=== PATIENT | male | born 1940 | race Caucasian/White ===

== ENCOUNTER 2018-09-06 07:54 | Inpatient (IN) | payer BC, MEDICARE, OTHER ==
[2018-09-03 15:26] LABS: BASOPHILS # (AUTO) 0.1 X10'3 (0-0.2); BASOPHILS % (AUTO) 0.5 % (0-1); EOSINOPHILS # (AUTO) 0.1 X10'3 (0-0.9); EOSINOPHILS % (AUTO) 1.2 % (0-6); LYMPHOCYTES # (AUTO) 1.5 X10'3 (1.1-4.8); LYMPHOCYTES % (AUTO) 13.3 % (21-51); MEAN CORPUSCULAR HGB CONC 32.6 % (33.0-36.5); MEAN CORPUSCULAR VOLUME 85.9 FL (78-98); MEAN PLATELET VOLUME 8.5 FL (7.4-10.4); MONOCYTES % (AUTO) 8.6 % (2-12); NEUTROPHILS # (AUTO) 8.6 X10'3 (1.8-7.7); NEUTROPHILS % (AUTO) 76.4 % (42-75); PRE OP HEMATOCRIT 42.6 % (42.0-52.0); PRE OP HEMOGLOBIN 13.9 g/dL (14.0-17.9); PRE OP PLATELET COUNT 240 X10'3 (140-440); RED BLOOD COUNT 4.96 X10'6 (4.70-6.10); RED CELL DISTRIBUTION WIDTH 18.5 % (11.5-14.5)
[2018-09-03 15:42] LABS: INR 1.1 INR; PRE OP PARTIAL THROMB. TIME 32 SECONDS (22-35)
[2018-09-03 15:44] LABS: ALBUMIN 3.3 G/DL (3.4-5.0); ALBUMIN/GLOBULIN RATIO 0.7 (1.1-1.5); ALKALINE PHOSPHATASE 90 IU/L (46-116); BLOOD UREA NITROGEN 26 MG/DL (7-18); CHLORIDE 101 MMOL/L (99-107); CREATININE 0.93 MG/DL (0.60-1.10); PRE OP ALT 20 U/L (30-65); PRE OP ANION GAP 11 (8-16); PRE OP AST 14 U/L (10-37); PRE OP BILIRUB, TOTAL 0.3 MG/DL (0.0-1.0); PRE OP GLUCOSE 95 MG/DL (70-104); PRE OP SODIUM 139 MMOL/L (135-145); TOTAL CARBON DIOXIDE 27.3 MMOL/L (24-32); TOTAL PROTEIN 7.8 G/DL (6.4-8.2); eGFR 79 ML/MIN
[2018-09-03 15:45] LABS: CLARITY,URINE CLEAR (Clear); COLOR,URINE YELLOW (Yellow); GLUCOSE, URINE NEGATIVE (Neg); KETONES,URINE NEGATIVE (Neg); LEUKOCYTE ESTERASE ,URINE NEGATIVE (Neg); NITRITES, URINE NEGATIVE (Neg); OCCULT BLOOD,URINE NEGATIVE (Neg); PROTEIN,URINE NEGATIVE (Neg); UROBILINOGEN,URINE 0.2 E.U/dL (0.2-1.0)
[2018-09-03 15:47] LABS: UA COLLECTION TYPE CLN CATCH MIDSTREAM
[~2018-09-06] VITALS: Ht 165.1 cm; Wt 101.8 kg
[2018-09-06] VITALS (18 sets, daily range): BP systolic 122–186; BP diastolic 54–79
[~2018-09-06 07:54] MED LIST: AMLO1CAP PO; ATOR40TA PO; CLOP75TA15 PO; HYDROmorphone 1 mg/ml syringe IV PRN; HYDROmorphone inj. 0.5 MG/0.5 ML DISP.SYRIN IV PRN; MELO-102 PO; OMEG-182 PO; POTA8CAP9 PO; PSYL575P22 PO; TRAM50TA2 PO; [UNRECOGNIZED DRUG - OTHER] PO; acetaminophen 325mg tablet PO ONE; acetaminophen 325mg tablet PO PRN; bisacodyl 10mg suppository rectal RC PRN; cefazolin/dext.iso 2gm/100ml 100 ML IV ONE; celeCOXIB 100mg capsule PO ONE; diphenhydrAMINE 25mg capsule PO PRN; famotidine 20mg tablet PO ONE; gabapentin 300mg capsule PO ONE; magnesium hydroxide 30ml (MOM) UD suspension PO PRN; metoclopramide 5 mg/ml inj IV ONE; ondansetron/PF 4mg/2ml inj IV PRN; oxyCODONE SR 10mg (sust. release) tab PO ONE; oxyCODONE/APAP 5-325mg tablet PO PRN; ringers solution, lacted 1,000 ML IV SCH; tranexamic acid inj. 1,000 MG in normal saline 100 ML IV ONE; vancomycin inj 1,500 MG in normal saline 300ml IV soln IV ONE
[2018-09-06] MEDS: multivitamins, therapeutics tablet PO SCH (08:00)
[2018-09-06] MEDS: clopidogrel 75mg tablet PO SCH (08:00)
[2018-09-06] MEDS: ascorbic acid 500mg tablet PO SCH ×2 (08:00→20:08)
[2018-09-06] MEDS: gabapentin 300mg capsule PO SCH ×3 (08:00→20:08)
[2018-09-06] MEDS: atorvastatin 20mg tablet PO SCH (08:00)
[2018-09-06] MEDS ORDERED: LIDOcaine 1% (10mg/ml) 2ml vial ONE (08:26)
[2018-09-06] MEDS ORDERED: ketorolac trometh. 30mg/ml inj. ONE (09:45)
[2018-09-06] MEDS ORDERED: vancomycin 1,000mg inj ONE (09:45)
[2018-09-06] MEDS ORDERED: ROPIVAcaine inj 250 MG, CloNIDine/PF inj 80 MCG, epiNEPHrine inj 0.5 MG in normal salin... IU ONE (10:05)
[2018-09-06] MEDS ORDERED: tetracaine 1% (10mg/ml) pres. free inj. ONE (10:28)
[2018-09-06] MEDS ORDERED: morphine /PF 1mg/ml 10ml inj. ONE (10:30)
[2018-09-06] MEDS ORDERED: MIDAZolam 5mg/5ml vial ONE (10:30)
[2018-09-06] MEDS ORDERED: fentaNYL/PF 50MCG/1 ML 2ML syringe ONE (10:30)
[2018-09-06] MEDS ORDERED: LIDOcaine 1%/PF 5ML 10 MG/ML VIAL ONE ×2 (10:48→12:40)
[2018-09-06] MEDS ORDERED: naloxone 2mg/2ml inj 2 MG in normal saline 500ml IV soln 500 ML IV PRN (11:13)
[2018-09-06] MEDS ORDERED: ringers solution, lacted 1,000 ML IV SCH (11:13)
[2018-09-06] MEDS ORDERED: morphine 4 MG/ML inj SYRINge IV PRN (11:15)
[2018-09-06] MEDS ORDERED: diphenhydrAMINE 50 mg/ml inj IV PRN (11:15)
[2018-09-06] MEDS ORDERED: ondansetron/PF 4mg/2ml inj IV PRN ×2 (11:15)
[2018-09-06] MEDS ORDERED: HYDROmorphone inj. 0.5 MG/0.5 ML DISP.SYRIN IV PRN (11:15)
[2018-09-06] MEDS ORDERED: ROPIVAcaine 0.5% (5mg/ml) 30ml vial ONE (11:25)
[2018-09-06] MEDS ORDERED: propofol inj 20 ML IV ONE (12:40)
--- NOTE | 2018-09-06 12:40 | NUR ---
Received from OR via BED , accompanied by Anesthesiologist DR LAND and report given by Anesthesiolgist. PATIENT A&OX4, DENIES PAIN, V/S WNL, NEUROVASCULAR CHECKS INTACT, 20G PIV LUE , DRESSING TO RIGHT KNEE CDI W/ COLD POWDER PACK AND DENIA DRESSING CDI ,W/ SCD ON. F/C DRAINING CLEAR YELLOW URINE. SENSATION T-11.
[2018-09-06] MEDS: ROPIVAcaine 0.2%/PF PAIN PUMP 400 ML IJ SCH ×2 (12:55→16:31)
--- NOTE | 2018-09-06 13:30 | NUR ---
PATIENT A&OX4, DENIES PAIN, V/S WNL, NEUROVASCULAR CHECKS INTACT, 20G PIV LUE , DRESSING TO RIGHT KNEE CDI W/ COLD POWDER PACK AND DENIA DRESSING CDI ,W/ SCD ON. F/C DRAINING CLEAR YELLOW URINE. SENSATION T-11. PATIENT TAKEN TO 4018 WITH ALL BELONGINGS AND HOOKED UP TO MONITORS IN ROOM AND REPORT GIVEN TO QUITA STRONG WHO HAS TAKEN OVER PATIENT CARE.
[2018-09-06] MEDS: potassium cl 20mEq in 1/2 NS 1,000 ML IV SCH ×3 (15:01→23:01)
--- NOTE | 2018-09-06 15:15 | NUR ---
pt states his pain and sensation have increased, would like pain medicine- I increased the On Q pump up to 10 ml/hr will continue to monitor
[2018-09-06] MEDS ORDERED: tranexamic acid inj. 1,000 MG in normal saline 100ml IV soln 100 ML IV ONE (15:30)
[2018-09-06] MEDS ORDERED: amLODIPine 5mg tablet PO ONE (17:10)
[2018-09-06] MEDS ORDERED: lisinopril 10 MG tablet PO ONE (17:10)
--- NOTE | 2018-09-06 18:30 | NUR ---
Patient in room ORTHO 4015. I have received report from LIGIA Prajapati and had the opportunity to ask questions and assume patient care.
[2018-09-06] MEDS: sennosides 8.6mg tablet PO SCH (20:08)
[2018-09-06] MEDS: cefazolin/dext.iso 2gm/100ml 100 ML IV SCH (20:08)
[2018-09-06] MEDS: oxyCODONE/APAP 5-325mg tablet PO PRN (22:12)
[2018-09-07] MEDS: cefazolin/dext.iso 2gm/100ml 100 ML IV SCH (00:49)
[2018-09-07 02:00] VITALS: BP 160/72
[2018-09-07] MEDS: oxyCODONE/APAP 5-325mg tablet PO PRN ×5 (03:57→20:27)
[2018-09-07] MEDS: potassium cl 20mEq in 1/2 NS 1,000 ML IV SCH ×3 (04:03→23:01)
[2018-09-07 06:00] VITALS: BP 161/80
--- NOTE | 2018-09-07 06:27 | NUR ---
Problems reprioritized. Patient report given, questions answered & plan of care reviewed with LIGIA Prajapati.
[2018-09-07 06:38] LABS: BASOPHILS % (AUTO) 0.4 % (0-1); EOSINOPHILS # (AUTO) 0.3 X10'3 (0-0.9); HEMATOCRIT 37.1 % (42.0-52.0); HEMOGLOBIN 12.3 g/dl (14.0-17.9); LYMPHOCYTES # (AUTO) 1.1 X10'3 (1.1-4.8); LYMPHOCYTES % (AUTO) 8.7 % (21-51); MEAN CORPUSCULAR HEMOGLOBIN 27.9 PG (27.0-31.0); MEAN CORPUSCULAR VOLUME 84.4 FL (78-98); MEAN PLATELET VOLUME 8.7 FL (7.4-10.4); MONOCYTES # (AUTO) 1.3 X10'3 (0-0.9); MONOCYTES % (AUTO) 10.7 % (2-12); NEUTROPHILS # (AUTO) 9.6 X10'3 (1.8-7.7); NEUTROPHILS % (AUTO) 78.2 % (42-75); PLATELET COUNT 193 X10'3 (140-440); RED CELL DISTRIBUTION WIDTH 17.4 % (11.5-14.5); WHITE BLOOD COUNT 12.2 X10'3 (4.5-11.0)
[2018-09-07 06:43] LABS: ANION GAP 7 (8-16); CHLORIDE 104 MMOL/L (99-107); POTASSIUM 4.1 MMOL/L (3.5-5.1); SODIUM 138 MMOL/L (135-145); TOTAL CARBON DIOXIDE 27.3 MMOL/L (24-32)
[2018-09-07] MEDS: amLODIPine 5mg tablet PO SCH (07:51)
[2018-09-07] MEDS: gabapentin 300mg capsule PO SCH ×3 (07:52→13:00)
[2018-09-07] MEDS: atorvastatin 20mg tablet PO SCH (07:52)
[2018-09-07] MEDS: lisinopril 20mg tablet PO SCH (07:52)
[2018-09-07] MEDS: clopidogrel 75mg tablet PO SCH (07:53)
[2018-09-07] MEDS: multivitamins, therapeutics tablet PO SCH (07:53)
[2018-09-07] MEDS: ascorbic acid 500mg tablet PO SCH ×2 (07:53→19:42)
[2018-09-07] MEDS: potassium chloride 8mEq ER tablet PO SCH (07:53)
[2018-09-07 10:00] VITALS: BP 150/66
[2018-09-07] MEDS ORDERED: hydrALAZINE 20mg/ml inj. IV PRN (13:05)
[2018-09-07 14:26] VITALS: BP 146/58
--- NOTE | 2018-09-07 15:26 | NUR ---
Joint replacement consult: Pt seen by BLU for written/verbal high protein ed. BLU reviewed high protein needs for wound healing, immune strength, high protein foods, and protein supplementation options. BLU contact information provided in case of further questions. Pt declines additional proteins at this time dislikes pork r/t restoration view; BLU d/w dietary. Addendum: 09/07/18 at [address] Amended: Links added.
--- NOTE | 2018-09-07 16:45 | NUR ---
ASSUMED CARE, RECEIVED REPORT FROM QUITA STRONG. I AGREE WITH HER ASSESSMENT AND WILL NOTE ANY CHANGES. PT IS RESTING COMFORTABLY. WILL CONTINUE TO MONITOR.
[2018-09-07 18:00] VITALS: BP 161/72
--- NOTE | 2018-09-07 18:00 | NUR ---
Problems reprioritized. Patient report given, questions answered & plan of care reviewed with JULIÁN Salguero RN.
[2018-09-07] MEDS: celeCOXIB 100mg capsule PO SCH (19:43)
[2018-09-07] MEDS: sennosides 8.6mg tablet PO SCH (19:43)
[2018-09-07 22:00] VITALS: BP 162/62
[2018-09-08] MEDS: oxyCODONE/APAP 5-325mg tablet PO PRN ×3 (01:54→13:06)
[2018-09-08 06:00] VITALS: BP 171/75
--- NOTE | 2018-09-08 06:22 | NUR ---
Problems reprioritized. Patient report given, questions answered & plan of care reviewed with LIGIA Prajapati.
[2018-09-08 07:05] LABS: BASOPHILS # (AUTO) 0.1 X10'3 (0-0.2); BASOPHILS % (AUTO) 0.4 % (0-1); EOSINOPHILS # (AUTO) 0.5 X10'3 (0-0.9); EOSINOPHILS % (AUTO) 3.8 % (0-6); HEMATOCRIT 37.2 % (42.0-52.0); HEMOGLOBIN 12.1 g/dl (14.0-17.9); LYMPHOCYTES # (AUTO) 0.8 X10'3 (1.1-4.8); LYMPHOCYTES % (AUTO) 5.9 % (21-51); MEAN CORPUSCULAR HEMOGLOBIN 27.9 PG (27.0-31.0); MEAN CORPUSCULAR HGB CONC 32.6 g/dL (33.0-36.5); MEAN CORPUSCULAR VOLUME 85.4 FL (78-98); MEAN PLATELET VOLUME 8.9 FL (7.4-10.4); MONOCYTES # (AUTO) 1.5 X10'3 (0-0.9); MONOCYTES % (AUTO) 10.2 % (2-12); NEUTROPHILS # (AUTO) 11.5 X10'3 (1.8-7.7); NEUTROPHILS % (AUTO) 79.7 % (42-75); PLATELET COUNT 192 X10'3 (140-440); RED BLOOD COUNT 4.35 X10'6 (4.70-6.10); RED CELL DISTRIBUTION WIDTH 17.8 % (11.5-14.5); WHITE BLOOD COUNT 14.4 X10'3 (4.5-11.0)
[2018-09-08] MEDS: potassium chloride 8mEq ER tablet PO SCH (09:11)
[2018-09-08] MEDS: atorvastatin 20mg tablet PO SCH (09:11)
[2018-09-08] MEDS: celeCOXIB 100mg capsule PO SCH (09:11)
[2018-09-08 09:12] VITALS: BP_SYST 171
[2018-09-08] MEDS: multivitamins, therapeutics tablet PO SCH (09:12)
[2018-09-08] MEDS: ascorbic acid 500mg tablet PO SCH (09:12)
[2018-09-08] MEDS: amLODIPine 5mg tablet PO SCH (09:12)
[2018-09-08] MEDS: lisinopril 20mg tablet PO SCH (09:12)
[2018-09-08] MEDS: clopidogrel 75mg tablet PO SCH (09:12)
== END 2018-09-08 13:30 | disposition home or self-care (01) | DRG 470 ==
LOC: PAS IN 07:54 → EDSTATUS 12:30 → ORTHO 4S 13:45
PROVIDERS: ADMIT Orthopaedic Surgery; ATTEND Orthopaedic Surgery
PROC: 0SRC0J9 Replacement of Right Knee Joint with Synthetic Substitute, Cemented, Open Approach (ICD-10-PCS; principal; 2018-09-06 10:26)
DX: M17.11 Unilateral primary osteoarthritis, right knee (principal); D62 Acute posthemorrhagic anemia; Z82.3 Family history of stroke; I25.10 Atherosclerotic heart disease of native coronary artery without angina pectoris; I10 Essential (primary) hypertension; E78.5 Hyperlipidemia, unspecified; Z96.651 Presence of right artificial knee joint
CPT/HCPCS: 36415; 71046; 73560; 80051; 80053; 81003; 82948; 85025; 85610; 85730; 86885; 86900; 86901; 87070; 97110; 97116; 97162; 97530; A6455; A7000; C1713; C1758; C1776; G0378; J0690; J1170; J1885; J2001; J2250; J2274; J2704; J2765; J2795; J3010; J3370; J3490; J7030; J7120

== ENCOUNTER 2019-08-18 06:31 | Inpatient (IN) | payer MEDICARE, BC ==
[~2019-08-18] VITALS: Ht 175.3 cm; Wt 111.4 kg
[~2019-08-18 06:31] MED LIST changes: -HYDROmorphone 1 mg/ml syringe IV PRN; -HYDROmorphone inj. 0.5 MG/0.5 ML DISP.SYRIN IV PRN; +POTA8CAP20 PO; -POTA8CAP9 PO; -acetaminophen 325mg tablet PO ONE; -acetaminophen 325mg tablet PO PRN; -bisacodyl 10mg suppository rectal RC PRN; -cefazolin/dext.iso 2gm/100ml 100 ML IV ONE; -celeCOXIB 100mg capsule PO ONE; -diphenhydrAMINE 25mg capsule PO PRN; -famotidine 20mg tablet PO ONE; -gabapentin 300mg capsule PO ONE; -magnesium hydroxide 30ml (MOM) UD suspension PO PRN; -metoclopramide 5 mg/ml inj IV ONE; -ondansetron/PF 4mg/2ml inj IV PRN; -oxyCODONE SR 10mg (sust. release) tab PO ONE; -oxyCODONE/APAP 5-325mg tablet PO PRN; -ringers solution, lacted 1,000 ML IV SCH; -tranexamic acid inj. 1,000 MG in normal saline 100 ML IV ONE; -vancomycin inj 1,500 MG in normal saline 300ml IV soln IV ONE
[2019-08-18] MEDS ORDERED: dexamethasone sod phosphate 10mg/ml inj IV STA (07:06)
[2019-08-18] MEDS ORDERED: CefTRIAXone 2gm/D5W 50ml 50 ML IV ONE (07:10)
[2019-08-18] MEDS ORDERED: ipratropium/albuterol 3ml nebule NEB ONE (07:10)
[2019-08-18 07:28] LABS: BASOPHILS % (AUTO) 0.5 % (0-1); EOSINOPHILS % (AUTO) 0 % (0-6); HEMATOCRIT 43.7 % (42.0-52.0); HEMOGLOBIN 14.7 g/dl (14.0-17.9); LYMPHOCYTES # (AUTO) 0.5 X10'3 (1.1-4.8); LYMPHOCYTES % (AUTO) 5.9 % (21-51); MEAN CORPUSCULAR HEMOGLOBIN 30.9 PG (27.0-31.0); MEAN CORPUSCULAR HGB CONC 33.6 g/dL (33.0-36.5); MEAN PLATELET VOLUME 8.6 FL (7.4-10.4); MONOCYTES # (AUTO) 0.6 X10'3 (0-0.9); NEUTROPHILS # (AUTO) 7.6 X10'3 (1.8-7.7); NEUTROPHILS % (AUTO) 86.6 % (42-75); PLATELET COUNT 131 X10'3 (140-440); RED BLOOD COUNT 4.75 X10'6 (4.70-6.10); RED CELL DISTRIBUTION WIDTH 15.6 % (11.5-14.5); WHITE BLOOD COUNT 8.8 X10'3 (4.5-11.0)
[2019-08-18] MEDS ORDERED: DOXYCYCLINE 100MG CAPSULE PO STA (07:31)
[2019-08-18 07:34] LABS: D-DIMER 3.02 MG/L FEU (0-0.50)
[2019-08-18 07:44] LABS: ALANINE AMINOTRANSFERASE 50 U/L (12-78); ALBUMIN 3.6 G/DL (3.4-5.0); ALKALINE PHOSPHATASE 63 IU/L (46-116); ANION GAP 11 (8-16); ASPARTATE AMINO TRANSFERASE 38 U/L (10-37); BILIRUBIN,TOTAL 1.2 MG/DL (0.1-1.0); BLOOD UREA NITROGEN 16 MG/DL (7-18); BUN/CREATININE RATIO 15.8 (5.4-32.0); CALCIUM 8.2 MG/DL (8.5-10.1); CHLORIDE 104 MMOL/L (99-107); CREATININE 1.01 MG/DL (0.60-1.10); GLUCOSE 139 MG/DL (70-104); POTASSIUM 4.1 MMOL/L (3.5-5.1); SODIUM 139 MMOL/L (135-145); TOTAL CARBON DIOXIDE 24.4 MMOL/L (24-32); TOTAL PROTEIN 7.1 G/DL (6.4-8.2); eGFR 72 ML/MIN
[2019-08-18] MEDS ORDERED: TERA1CAP4 PO (07:54)
[2019-08-18] MEDS ORDERED: CLOP75TA15 PO (07:57)
[2019-08-18] MEDS ORDERED: heparin 25,000 UNIT/250ml bag 250 ML IV SCH (08:03)
[2019-08-18] MEDS ORDERED: heparin 10,000 units/1 ML INJ IV ONE ×2 (08:05)
[2019-08-18] MEDS ORDERED: aspirin 81mg tab.chew PO ONE (08:05)
[2019-08-18] MEDS ORDERED: heparin 10,000 units/1 ML INJ IV PRN (08:05)
[2019-08-18] MEDS ORDERED: iohexol 350MG/ML 100ml bottle IV ONE (08:08)
[2019-08-18 08:10] LABS: ABG BASE EXCESS 0.5 mmol/L (-2.0-3.0); ABG HCO3 24.8 mmol/L (22.0-26.0); ABG OXYGEN SATURATION 96.5 % (95-98); ABG PCO2 (T) 39.1 mmHg (35.0-45.0); ABG PH (T) 7.421 (7.350-7.450); ABG PO2 (T) 83.5 mmHg (83-108); ALLEN'S TEST Positive; FCOHb 1.7 % (0.5-1.5); FLOW 2 L/min; FMetHb 0.2 % (0.3-1.12); FO2Hb 94.7 % (94-100); TOTAL HEMOGLOBIN 14.5 G/dl (14.0-17.9)
[2019-08-18] MEDS ORDERED: HYDROcodone/acetaminophen 5mg/325mg tablet PO PRN (08:30)
[2019-08-18] MEDS ORDERED: ondansetron/PF 4mg/2ml inj IV PRN (08:30)
[2019-08-18] MEDS ORDERED: potassium Cl 20 mEq SR tablet PO PRN (08:30)
[2019-08-18] MEDS ORDERED: methylPREDNISolone sod succ 125mg/2ml vial IV ONE (08:30)
[2019-08-18] MEDS ORDERED: morphine 2 MG/ML inj. syringe IV PRN ×2 (08:30)
[2019-08-18] MEDS ORDERED: mag hydrox/Alum hydrox/simeth 30ml oral suspension PO PRN (08:30)
[2019-08-18] MEDS ORDERED: acetaminophen 325mg tablet PO PRN ×2 (08:30)
[2019-08-18] MEDS ORDERED: magnesium Cl slow-release 64mg tablet PO PRN (08:30)
[2019-08-18] MEDS ORDERED: bisacodyl 10mg suppository rectal RC PRN (08:30)
[2019-08-18] MEDS ORDERED: acetaminophen 650mg rectal suppository RC PRN (08:30)
[2019-08-18] MEDS ORDERED: diphenhydrAMINE 25mg capsule PO PRN (08:30)
[2019-08-18] MEDS ORDERED: magnesium 4gm in 100ml NS 100 ML IV PRN (08:30)
[2019-08-18] MEDS ORDERED: HYDROcodone/acetaminophen 10/325mg tab PO PRN (08:30)
[2019-08-18] MEDS ORDERED: magnesium 2GM in 50ml NS 50 ML IV PRN (08:30)
[2019-08-18] MEDS ORDERED: potassium CL 10mEq/100ml bag 100 ML IV PRN ×2 (08:30)
[2019-08-18] MEDS ORDERED: magnesium hydroxide 30ml (MOM) UD suspension PO PRN (08:30)
[2019-08-18] MEDS: normal saline 1000ml 1,000 ML IV SCH (09:04)
[2019-08-18] MEDS: levoFLOXACIN-Levaquin 750MG/D5 150 ML IV SCH (09:04)
[2019-08-18] MEDS: metoprolol succinate 25mg (24-HOUR) SR. Tablet PO SCH (09:05)
[2019-08-18 09:12] LABS: CLARITY,URINE CLEAR (Clear); COLOR,URINE YELLOW (Yellow); GLUCOSE, URINE NEGATIVE (Neg); KETONES,URINE TRACE mg/dl (Neg); LEUKOCYTE ESTERASE ,URINE NEGATIVE (Neg); NITRITES, URINE NEGATIVE (Neg); OCCULT BLOOD,URINE TRACE-INTACT (Neg); PH,URINE 5.5 (4.8-8.0); PROTEIN,URINE 30 mg/dl (Neg); UROBILINOGEN,URINE 0.2 E.U/dL (0.2-1.0)
[2019-08-18 09:28] LABS: FINE GRANULAR CAST 0-3 /LPF (NEGATIVE); HYALINE CASTS 0-3 /LPF (NEGATIVE); MUCUS STRANDS FEW /LPF (Neg); SQUAMOUS EPITHELIAL CELL,UR FEW /LPF (FEW); UA COLLECTION TYPE NON-SPECIFIED; WBC,URINE 0-4 /HPF (0-4)
[2019-08-18 09:29] LABS: BACTERIA,URINE FEW /HPF (Neg); RBC,URINE 0-2 /HPF (0-2)
[2019-08-18 10:53] LABS: HEMOGLOBIN A1C 5.7 % (4.5-6.2)
[2019-08-18] MEDS: ipratropium/albuterol 3ml nebule NEB SCH ×4 (12:05→21:48)
--- NOTE | 2019-08-18 12:06 | NUR ---
respiratory at bedside
--- NOTE | 2019-08-18 13:41 | NUR ---
Patient in room ED 16. I have received report from LIGIA Corona and had the opportunity to ask questions. Awaiting patient's arrival to PCU room 3015V.
--- NOTE | 2019-08-18 14:05 | NUR ---
Pt arrived from ED via gurney & transferred independently in to bed without difficulty. Vital signs obtained, tele monitor applied. Pt oriented to room, including call light use and TV.
[2019-08-18 14:15] VITALS: BP 152/98
[2019-08-18] MEDS: methylPREDNISolone sod succ 125mg/2ml vial IV SCH ×2 (14:30→20:51)
[2019-08-18 15:00] VITALS: BP 167/88
--- NOTE | 2019-08-18 16:11 | NUR ---
Paged Dr. Aguilar re critical. PAGER ID: [phone] MESSAGE: Pt Boni Zimmerman in 3013B PTT critical at 139. Heparin gtt stopped. Thanks! Joselin STRONG [phone]
[2019-08-18] MEDS ORDERED: nitroGLYCERIN 0.4mg SUBLingual tab SL PRN (16:40)
[2019-08-18] MEDS ORDERED: metoprolol tartrate 1mg/ml inj IV PRN (16:40)
[2019-08-18] MEDS ORDERED: furosemide 10 MG/1 ML 10ml inj IV ONE (16:40)
[2019-08-18] MEDS ORDERED: regadenoson 0.4mg/5ml syringe IV ONE (16:40)
[2019-08-18] MEDS ORDERED: aminophylline 250mg/10ml inj. IV PRN (16:40)
--- NOTE | 2019-08-18 17:28 | NUR ---
Paged Dr. Aguilar re critical value PAGER ID: [phone] MESSAGE: Pt Boni Zimmerman in 3013B re-draw of PTT critical at >139. Heparin gtt d/c'd. Thanks! Joselin STRONG [phone]
[2019-08-18 18:00] VITALS: BP 147/90
--- NOTE | 2019-08-18 18:30 | NUR ---
Problems reprioritized. Patient report given, questions answered & plan of care reviewed with LIGIA Torre.
--- NOTE | 2019-08-18 18:53 | NUR ---
Patient in room PCU 3013. I have received report from Joselin STRONG and had the opportunity to ask questions and assume patient care.
[2019-08-18] MEDS: K and/or MAG REPLACEMENT MC SCH (20:00)
[2019-08-18] MEDS: Terazosin 1mg capsule PO SCH (20:48)
[2019-08-18] MEDS: omega-3 acid ethyl esters 1GM capsule PO SCH (20:49)
[2019-08-18] MEDS: heparin, porcine 5000 units/ml vial SQ SCH (20:51)
[2019-08-18] MEDS ORDERED: psyllium seed 3.4 gm packet PO SCH (21:00)
[2019-08-18] MEDS ORDERED: temazepam 15mg capsule PO PRN (21:00)
[2019-08-18] MEDS: furosemide 40mg/4ml inj IV SCH (21:07)
[2019-08-18] MEDS: psyllium seed 3.4 gm packet PO SCH (21:08)
[2019-08-18 22:30] VITALS: BP 140/74
[2019-08-19] VITALS (13 sets, daily range): BP systolic 126–178; BP diastolic 59–109
[2019-08-19] MEDS: methylPREDNISolone sod succ 125mg/2ml vial IV SCH ×4 (02:15→20:31)
[2019-08-19] MEDS: normal saline 1000ml 1,000 ML IV SCH (02:19)
[2019-08-19] MEDS: ipratropium/albuterol 3ml nebule NEB SCH ×6 (02:38→23:27)
[2019-08-19 05:58] LABS: BASOPHILS % (AUTO) 0.1 % (0-1); EOSINOPHILS % (AUTO) 0 % (0-6); HEMATOCRIT 44.8 % (42.0-52.0); LYMPHOCYTES # (AUTO) 0.5 X10'3 (1.1-4.8); MEAN CORPUSCULAR HEMOGLOBIN 30.6 PG (27.0-31.0); MEAN CORPUSCULAR HGB CONC 33.4 g/dL (33.0-36.5); MEAN CORPUSCULAR VOLUME 91.6 FL (78-98); MEAN PLATELET VOLUME 8.6 FL (7.4-10.4); MONOCYTES # (AUTO) 0.2 X10'3 (0-0.9); MONOCYTES % (AUTO) 5.6 % (2-12); NEUTROPHILS # (AUTO) 3.7 X10'3 (1.8-7.7); NEUTROPHILS % (AUTO) 83.3 % (42-75); PLATELET COUNT 119 X10'3 (140-440); RED BLOOD COUNT 4.89 X10'6 (4.70-6.10); RED CELL DISTRIBUTION WIDTH 15.8 % (11.5-14.5); WHITE BLOOD COUNT 4.4 X10'3 (4.5-11.0)
--- NOTE | 2019-08-19 06:16 | NUR ---
Patient in room PCU 3013. I have received report from LIGIA Torre and had the opportunity to ask questions and assume patient care.
--- NOTE | 2019-08-19 06:16 | NUR ---
Problems reprioritized. Patient report given, questions answered & plan of care reviewed with Joselin STRONG.
[2019-08-19 06:37] LABS: ALANINE AMINOTRANSFERASE 46 U/L (12-78); ALBUMIN 3.1 G/DL (3.4-5.0); ALBUMIN/GLOBULIN RATIO 0.9 (1.1-1.5); ALKALINE PHOSPHATASE 54 IU/L (46-116); ANION GAP 10 (8-16); ASPARTATE AMINO TRANSFERASE 34 U/L (10-37); BILIRUBIN,TOTAL 0.6 MG/DL (0.1-1.0); BLOOD UREA NITROGEN 21 MG/DL (7-18); BUN/CREATININE RATIO 22.3 (5.4-32.0); CALCIUM 7.9 MG/DL (8.5-10.1); CHLORIDE 105 MMOL/L (99-107); CHOL/HDL RATIO 6.2 (0.00-4.99); CHOLESTEROL 162 MG/DL (0-200); CREATININE 0.94 MG/DL (0.60-1.10); GLUCOSE 152 MG/DL (70-104); HDL CHOLESTEROL 26 MG/DL (35-60); LDL CHOLESTEROL 122 MG/DL (50-100); PHOSPHORUS 3.6 MG/DL (2.3-4.5); POTASSIUM 3.8 MMOL/L (3.5-5.1); SODIUM 142 MMOL/L (135-145); TOTAL CARBON DIOXIDE 27.2 MMOL/L (24-32); TOTAL PROTEIN 6.7 G/DL (6.4-8.2); TRIGLYCERIDES 71 MG/DL (20-135); eGFR 78 ML/MIN
[2019-08-19] MEDS: metoprolol succinate 25mg (24-HOUR) SR. Tablet PO SCH (08:00)
[2019-08-19] MEDS: furosemide 40mg/4ml inj IV SCH ×3 (08:00→20:30)
[2019-08-19] MEDS: K and/or MAG REPLACEMENT MC SCH ×2 (08:00→20:15)
[2019-08-19] MEDS: levoFLOXACIN-Levaquin 750MG/D5 150 ML IV SCH (08:38)
[2019-08-19] MEDS: omega-3 acid ethyl esters 1GM capsule PO SCH ×2 (08:39→20:29)
[2019-08-19] MEDS: heparin, porcine 5000 units/ml vial SQ SCH (08:41)
[2019-08-19] MEDS: clopidogrel 75mg tablet PO SCH (08:41)
[2019-08-19] MEDS ORDERED: verapamil 2.5 mg/ml inj IV ONE (12:07)
[2019-08-19] MEDS ORDERED: iohexol 350 MG/ML 50ML vial IV ONE ×3 (12:08→14:14)
[2019-08-19] MEDS ORDERED: heparin 1,000unit/ml 10ml vial 10 ML ONE (12:08)
[2019-08-19] MEDS ORDERED: heparin 1,000 UNITS/NS 500ml 500 ML ONE ×2 (12:08→13:49)
[2019-08-19] MEDS ORDERED: LIDOcaine 1% (10mg/ml)w/preservative injection 20ml MDV ONE (12:08)
[2019-08-19] MEDS ORDERED: nitroGLYCERIN-Tridil 50MG/D5W 250 ML IV ONE (12:08)
[2019-08-19] MEDS ORDERED: midazolam 2 mg/2 ml injection ONE (12:08)
[2019-08-19] MEDS ORDERED: iohexol 350MG/ML 100ml bottle IV ONE (12:08)
[2019-08-19] MEDS ORDERED: fentaNYL/PF 50MCG/1 ML 2ML syringe ONE (12:08)
[2019-08-19] MEDS ORDERED: LIDOcaine/PRILOcaine 5gm cream TP ONE (12:10)
[2019-08-19] MEDS ORDERED: DOBUTamine-DoBUTrex 500mg/D5W 250 ML IV ONE (12:22)
--- NOTE | 2019-08-19 12:51 | NUR ---
Pt transported by wheelchair down to shop laborer.
[2019-08-19] MEDS ORDERED: furosemide 40mg/4ml inj ONE (14:19)
--- NOTE | 2019-08-19 14:45 | NUR ---
Received report from Sam RN in clinical laboratory medical director. Awaiting pt's return to PCU room 3019N.
--- NOTE | 2019-08-19 14:50 | NUR ---
Pt returned to room via bed from laboratory tech. orders faxed to pharmacy. Post-op vitals initiated. Addendum: 08/19/19 at 1504 by Charo Freire RN Called pharmacy to check on post procedure K 40 MEQ.
--- NOTE | 2019-08-19 15:28 | NUR ---
Called pharmacy to check on K from post cath order. Pharmacist told this RN to give pt Addendum: 08/19/19 at 1530 by Charo Freire RN Pharmacist told this RN to give pt K using previously entered electrolyte replacement protocol. No new K orders would be entered from post cath orders.
[2019-08-19] MEDS ORDERED: heparin, porcine 5000 units/ml vial SQ SCH (16:00)
[2019-08-19] MEDS ORDERED: potassium Cl 20 mEq SR tablet PO ONE (16:15)
--- NOTE | 2019-08-19 16:17 | NUR ---
Called pharmacist to have SQ heparin discontinued from pt's EMAR per post cath written orders from Dr. Rice.
--- NOTE | 2019-08-19 18:31 | NUR ---
Problems reprioritized. Patient report given, questions answered & plan of care reviewed with LIGIA Torre.
--- NOTE | 2019-08-19 18:34 | NUR ---
Patient in room PCU 3022. I have received report from Joselin STRONG and had the opportunity to ask questions and assume patient care.
[2019-08-19] MEDS: Terazosin 1mg capsule PO SCH (20:29)
[2019-08-19] MEDS: psyllium seed 3.4 gm packet PO SCH (20:29)
[2019-08-19] MEDS: amiodarone 200mg tablet PO SCH (20:30)
[2019-08-19] MEDS: potassium Cl 20 mEq SR tablet PO PRN (20:31)
[2019-08-19] MEDS ORDERED: lisinopril 10 MG tablet PO SCH (21:00)
[2019-08-20] MEDS: methylPREDNISolone sod succ 125mg/2ml vial IV SCH ×3 (02:12→13:32)
[2019-08-20 02:30] VITALS: BP 117/75
[2019-08-20] MEDS: ipratropium/albuterol 3ml nebule NEB SCH ×3 (04:52→11:00)
[2019-08-20 05:29] LABS: BASOPHILS % (AUTO) 0 % (0-1); EOSINOPHILS % (AUTO) 0 % (0-6); HEMATOCRIT 44.4 % (42.0-52.0); HEMOGLOBIN 14.8 g/dl (14.0-17.9); LYMPHOCYTES # (AUTO) 0.4 X10'3 (1.1-4.8); LYMPHOCYTES % (AUTO) 4.7 % (21-51); MEAN CORPUSCULAR HGB CONC 33.4 g/dL (33.0-36.5); MEAN CORPUSCULAR VOLUME 92.7 FL (78-98); MEAN PLATELET VOLUME 8.9 FL (7.4-10.4); MONOCYTES # (AUTO) 0.3 X10'3 (0-0.9); MONOCYTES % (AUTO) 3.1 % (2-12); NEUTROPHILS # (AUTO) 8.5 X10'3 (1.8-7.7); NEUTROPHILS % (AUTO) 92.2 % (42-75); PLATELET COUNT 142 X10'3 (140-440); RED CELL DISTRIBUTION WIDTH 15.9 % (11.5-14.5); WHITE BLOOD COUNT 9.2 X10'3 (4.5-11.0)
[2019-08-20 05:40] LABS: ALANINE AMINOTRANSFERASE 44 U/L (12-78); ALBUMIN 3.2 G/DL (3.4-5.0); ALBUMIN/GLOBULIN RATIO 0.9 (1.1-1.5); ALKALINE PHOSPHATASE 53 IU/L (46-116); ANION GAP 7 (8-16); ASPARTATE AMINO TRANSFERASE 33 U/L (10-37); BILIRUBIN,TOTAL 0.7 MG/DL (0.1-1.0); BLOOD UREA NITROGEN 27 MG/DL (7-18); CALCIUM 8.1 MG/DL (8.5-10.1); CHLORIDE 105 MMOL/L (99-107); CREATININE 1.23 MG/DL (0.60-1.10); GLUCOSE 151 MG/DL (70-104); MAGNESIUM 2.3 MG/DL (1.5-2.4); PHOSPHORUS 3.6 MG/DL (2.3-4.5); POTASSIUM 3.8 MMOL/L (3.5-5.1); SODIUM 144 MMOL/L (135-145); TOTAL PROTEIN 6.8 G/DL (6.4-8.2); eGFR 57 ML/MIN
--- NOTE | 2019-08-20 06:26 | NUR ---
Problems reprioritized. Patient report given, questions answered & plan of care reviewed with Nikkie STRONG.
--- NOTE | 2019-08-20 06:43 | NUR ---
Patient in room PCU 3013. I have received report from Izaiah STRONG and had the opportunity to ask questions and assume patient care, patient is stable and resting at transfer, noticed patient wheezing while in room, monitoring closely.
--- NOTE | 2019-08-20 06:47 | NUR ---
Patient in room PCU 3013. I have received report from Yelitza STRONG and had the opportunity to ask questions and assume patient care. Patient awake in bed with no complaints at this time. All immediate needs met.
[2019-08-20 07:00] VITALS: BP 166/79
[2019-08-20] MEDS: K and/or MAG REPLACEMENT MC SCH (08:00)
[2019-08-20] MEDS ORDERED: apixaban 5mg tablet PO SCH (08:00)
[2019-08-20] MEDS: clopidogrel 75mg tablet PO SCH (08:43)
[2019-08-20] MEDS: potassium Cl 20 mEq SR tablet PO PRN ×2 (08:43→13:32)
[2019-08-20] MEDS: amiodarone 200mg tablet PO SCH (08:45)
[2019-08-20] MEDS: metoprolol succinate 25mg (24-HOUR) SR. Tablet PO SCH (08:45)
[2019-08-20] MEDS: omega-3 acid ethyl esters 1GM capsule PO SCH (08:45)
[2019-08-20] MEDS: furosemide 40mg/4ml inj IV SCH (08:45)
[2019-08-20] MEDS: levoFLOXACIN-Levaquin 750MG/D5 150 ML IV SCH (08:52)
[2019-08-20] MEDS ORDERED: atorvastatin 20mg tablet PO SCH (10:00)
[2019-08-20 11:00] VITALS: BP 141/79
[2019-08-20] MEDS ORDERED: APIX5TAB3 PO (11:19)
[2019-08-20] MEDS ORDERED: METO-395 PO (11:19)
[2019-08-20] MEDS ORDERED: LACT1CAP26 PO (11:19)
[2019-08-20] MEDS ORDERED: LISI10TA4 PO (11:19)
[2019-08-20] MEDS ORDERED: LEVO750T46 PO (11:19)
[2019-08-20] MEDS ORDERED: FURO-150 PO (11:19)
[2019-08-20] MEDS ORDERED: AMIO200T61 PO (11:19)
[2019-08-20] MEDS ORDERED: ALBU8.5H8 INH (11:19)
[2019-08-20] MEDS ORDERED: ATOR20TA66 PO (11:19)
[2019-08-20] MEDS ORDERED: PRED10TA23 PO (11:19)
[2019-08-20] MEDS ORDERED: NITR0.4T51 SL (11:19)
--- NOTE | 2019-08-20 11:38 | NUR ---
O2 Sat at rest on room air:_94__% If below 89%: Recovery O2 Sat at rest on ___LPM:___%:___% via (mask/nasal cannula, etc..) No further documentation is necessary. If O2 Sat did not drop below 89% on room air,ambulate patient on room air. O2 Sat while ambulating on room air:_87__% Recovery O2 Sat while ambulating on _2__LPM:_92__% No further documentation is necessary. If patient does not drop below 89% while ambulating, he/she does not qualify for home O2.
--- NOTE | 2019-08-20 13:44 | NUR ---
Paged Dr. Aguilar to clarify discharge medications: PAGER ID: [phone] MESSAGE: RE: Tony Zimmerman [phone]. Can you please clarify discharge medications. Per pharmacist levofloxacin combined with amiodarone increases QT interval. Also new rx for Eliquis and patient continued on Plavix. Thank you. Nikkie Amaya Addendum: 08/20/19 at 1544 by Nikkie Walker RN Per Dr. Aguilar: Patient to follow up in 3 days with PCP for repeat EKG.
--- NOTE | 2019-08-20 15:30 | NUR ---
Patient stable for discharge per MD orders. All discharge instructions reviewed with patient and all questions answered. Patient to follow up with PCP in 3 days for repeat EKG to evaluate QT interval. Patient to follow up with Dr. Rice in 3-4 weeks for outpatient event monitor and PCP in 1 week. All new prescriptions transmitted to [facility]. All patient belongings packed up and sent with patient in private vehicle to home. New order for home oxygen delivered bedside to patient. PIV discontinued - cannula intact. Telemetry monitoring discontinued. Patient wheeled to lobby by RN, accompanied by family members.
--- NOTE | 2019-08-20 17:22 | NUR ---
Orientee documentation: I have reviewed and agree with all interventions, assessments performed and documented by LIGIA Sanchez. [place]ee Medication Administration: For this medication-pass time frame, all medication were reviewed, dispensed, administered and documented per hospital policy by LIGIA Sanchez.
[2019-08-20] MEDS ORDERED: lactobacillus rhamnosus 10,000 MMU CELLS/CAPSULE PO SCH (20:00)
[2019-08-21] MEDS ORDERED: metoprolol succinate 25mg (24-HOUR) SR. Tablet PO SCH (08:00)
[2019-08-21] MEDS ORDERED: levoFLOXACIN 750MG TABLET PO SCH (11:00)
--- NOTE | 2019-08-22 10:15 | NUR ---
Case Management DC follow up: spoke w/pt son & spouse via telephone. pt is doing much better. Continues to use IS, verbalized will contact PCP Dr Boni Mitchell for follow up; appt for Echo scheduled for Monday08/27/2019/Dwayne. pt using O2/[place] resp, HH will be at home soon for initiial meeting between 11-12. No ase noted r/t new Rx at this time. Educated risk/benefit of new meds, s/s , precaution to use walker to steady when changing positions, lying down, sitting, standing. All questions answered and needs med at [place]. Pt medications have been organized and gone over with the family. Pt has great support. States pt has productive cough, tinge of blood. pt son verbalized understanding r/t worsening symptoms pt should rtn to hospital. At this time, slight SOB w/exertion, denies pain, cp, N/V, dizziness at this time. No further questions
[2019-09-03] MEDS ORDERED: amiodarone 200mg tablet PO SCH (08:00)
== END 2019-08-20 15:28 | disposition home health service (06) | DRG 280 ==
LOC: ER 06:32 → ED HOLD 08:28 → EDBEDREQ 13:13 → PCU 3S 14:05
PROVIDERS: ADMIT Family Medicine; ATTEND Family Medicine
PROC: 4A023N8 Measurement of Cardiac Sampling and Pressure, Bilateral, Percutaneous Approach (ICD-10-PCS; principal; 2019-08-19)
PROC: B2111ZZ Fluoroscopy of Multiple Coronary Arteries using Low Osmolar Contrast (ICD-10-PCS; 2019-08-19)
PROC: B2151ZZ Fluoroscopy of Left Heart using Low Osmolar Contrast (ICD-10-PCS; 2019-08-19)
DX: I11.0 Hypertensive heart disease with heart failure (principal); J18.9 Pneumonia, unspecified organism; I21.A1 Myocardial infarction type 2; I50.21 Acute systolic (congestive) heart failure; J96.90 Respiratory failure, unspecified, unspecified whether with hypoxia or hypercapnia; J44.1 Chronic obstructive pulmonary disease with (acute) exacerbation; I48.92 Unspecified atrial flutter; J44.0 Chronic obstructive pulmonary disease with (acute) lower respiratory infection; E66.01 Morbid (severe) obesity due to excess calories; E78.00 Pure hypercholesterolemia, unspecified; E78.5 Hyperlipidemia, unspecified; G47.30 Sleep apnea, unspecified; I25.10 Atherosclerotic heart disease of native coronary artery without angina pectoris; I44.7 Left bundle-branch block, unspecified; I48.0 Paroxysmal atrial fibrillation; Z96.651 Presence of right artificial knee joint; G47.33 Obstructive sleep apnea (adult) (pediatric); K57.90 Diverticulosis of intestine, part unspecified, without perforation or abscess without bleeding; M19.90 Unspecified osteoarthritis, unspecified site; N40.0 Benign prostatic hyperplasia without lower urinary tract symptoms; Z79.02 Long term (current) use of antithrombotics/antiplatelets; Z79.899 Other long term (current) drug therapy; Z80.0 Family history of malignant neoplasm of digestive organs; Z82.3 Family history of stroke; Z86.73 Personal history of transient ischemic attack (TIA), and cerebral infarction without residual deficits; Z95.5 Presence of coronary angioplasty implant and graft; Z68.36 Body mass index [BMI] 36.0-36.9, adult
CPT/HCPCS: 36415; 36600; 71046; 71275; 80053; 80061; 81001; 82803; 83036; 83605; 83735; 83880; 84100; 84145; 84439; 84443; 84484; 85018; 85025; 85379; 85730; 87040; 87070; 87077; 87081; 87502; 87503; 92508; 92616; 93005; 93306; 93460; 93567; 94640; 94760; 96365; 96375; 97110; 97116; 97163; 99152; 99153; 99285; A4620; A5120; A6258; C1769; C1887; C1894; G0378; J0696; J1100; J1250; J1644; J1940; J1956; J2001; J2250; J2930; J3010; J3490; J7030; Q9967

== ENCOUNTER 2019-11-05 13:46 | Day surgery (SDC) | payer MEDICARE, BC ==
[2019-11-04 14:59] LABS: ALBUMIN 3.6 G/DL (3.4-5.0); ANION GAP 5 (8-16); BLOOD UREA NITROGEN 21 MG/DL (7-18); BUN/CREATININE RATIO 15.6 (5.4-32.0); CHLORIDE 109 MMOL/L (99-107); CREATININE 1.35 MG/DL (0.60-1.10); GLUCOSE 113 MG/DL (70-104); POTASSIUM 4.2 MMOL/L (3.5-5.1); SODIUM 145 MMOL/L (135-145); eGFR 51 ML/MIN
[2019-11-05] VITALS (10 sets, daily range): BP systolic 153–187; BP diastolic 35–92
[~2019-11-05] VITALS: Ht 172.7 cm; Wt 108.4 kg
[~2019-11-05 13:46] MED LIST changes: +ALBU8.5H8 INH; +AMIO200T61 PO; -AMLO1CAP PO; +APIX5TAB3 PO; +ATOR20TA66 PO; -ATOR40TA PO; +LACT1CAP26 PO; +LEVO750T46 PO; +LISI10TA4 PO; -MELO-102 PO; +METO-395 PO; +NITR0.4T51 SL; +TERA1CAP4 PO; -TRAM50TA2 PO; -[UNRECOGNIZED DRUG - OTHER] PO
[2019-11-05] MEDS ORDERED: fentaNYL/PF 50MCG/1 ML 2ML syringe IV ONE (14:25)
[2019-11-05] MEDS ORDERED: MIDAZolam 1mg/ml 10ml vial IV ONE (14:25)
[2019-11-05] MEDS ORDERED: atropine 0.1mg/ml 10ml syringe IV ONE (14:30)
[2019-11-05] MEDS ORDERED: LORazepam 0.5 MG tablet PO ONE (14:30)
[2019-11-05] MEDS ORDERED: amiodarone in dextrose, iso-osm 150mg/100ml bag IV ONE (14:30)
[2019-11-05] MEDS ORDERED: diphenhydrAMINE 25mg capsule PO ONE (14:30)
[2019-11-05] MEDS ORDERED: morphine 10mg/ml inj. IV ONE (14:30)
[2019-11-05 14:34] LABS: BASOPHILS # (AUTO) 0.1 X10'3 (0-0.2); EOSINOPHILS # (AUTO) 0.1 X10'3 (0-0.9); EOSINOPHILS % (AUTO) 1.7 % (0-6); HEMATOCRIT 43.1 % (42.0-52.0); HEMOGLOBIN 13.9 g/dl (14.0-17.9); LYMPHOCYTES # (AUTO) 1.2 X10'3 (1.1-4.8); MEAN CORPUSCULAR HEMOGLOBIN 29.4 PG (27.0-31.0); MEAN CORPUSCULAR HGB CONC 32.3 g/dL (33.0-36.5); MEAN CORPUSCULAR VOLUME 90.9 FL (78-98); MEAN PLATELET VOLUME 8.7 FL (7.4-10.4); MONOCYTES # (AUTO) 0.6 X10'3 (0-0.9); MONOCYTES % (AUTO) 8.7 % (2-12); NEUTROPHILS # (AUTO) 5.3 X10'3 (1.8-7.7); NEUTROPHILS % (AUTO) 72.6 % (42-75); PLATELET COUNT 133 X10'3 (140-440); RED BLOOD COUNT 4.75 X10'6 (4.70-6.10); RED CELL DISTRIBUTION WIDTH 17.3 % (11.5-14.5); WHITE BLOOD COUNT 7.3 X10'3 (4.5-11.0)
[2019-11-05 14:56] LABS: ALBUMIN 3.7 G/DL (3.4-5.0); ANION GAP 6 (8-16); BLOOD UREA NITROGEN 24 MG/DL (7-18); BUN/CREATININE RATIO 17.5 (5.4-32.0); CALCIUM 8.8 MG/DL (8.5-10.1); CHLORIDE 108 MMOL/L (99-107); CREATININE 1.37 MG/DL (0.60-1.10); GLUCOSE 95 MG/DL (70-104); POTASSIUM 3.9 MMOL/L (3.5-5.1); SODIUM 145 MMOL/L (135-145); TOTAL CARBON DIOXIDE 30.6 MMOL/L (24-32); eGFR 50 ML/MIN
[2019-11-05] MEDS ORDERED: [UNRECOGNIZED DRUG - CODE] (15:32)
[2019-11-05] MEDS ORDERED: HYDR12.55 PO (15:32)
[2019-11-05] MEDS ORDERED: AMIO200T62 PO (15:32)
[2019-11-05] MEDS ORDERED: ACET600C PO (15:32)
[2019-11-05] MEDS ORDERED: FURO-149 PO (15:32)
[2019-11-05] MEDS ORDERED: LISI-600 PO (15:32)
[2019-11-05] MEDS ORDERED: VITAMIN D (15:32)
[2019-11-05] MEDS ORDERED: CLOP75TA15 PO (15:32)
[2019-11-05] MEDS ORDERED: LACT1CAP65 PO (15:32)
[2019-11-05] MEDS ORDERED: APIX5TAB3 PO ×2 (15:32→15:35)
[2019-11-05] MEDS ORDERED: normal saline 1000ml 1,000 ML IV SCH (16:20)
== END 2019-11-05 18:50 | disposition home or self-care (01) ==
LOC: SSTAY O 13:46 → MED 3N 13:48 → SSTAY O 18:50
PROVIDERS: ATTEND Internal Medicine Cardiovascular Disease
DX: I48.92 Unspecified atrial flutter (principal); I48.0 Paroxysmal atrial fibrillation; E78.5 Hyperlipidemia, unspecified; I11.0 Hypertensive heart disease with heart failure; I50.9 Heart failure, unspecified; I25.10 Atherosclerotic heart disease of native coronary artery without angina pectoris; I49.5 Sick sinus syndrome; I35.0 Nonrheumatic aortic (valve) stenosis; I44.1 Atrioventricular block, second degree; G47.30 Sleep apnea, unspecified; Z95.5 Presence of coronary angioplasty implant and graft; Z79.01 Long term (current) use of anticoagulants; Z79.82 Long term (current) use of aspirin; Z79.899 Other long term (current) drug therapy; E66.3 Overweight; Z68.37 Body mass index [BMI] 37.0-37.9, adult; Z98.890 Other specified postprocedural states
CPT/HCPCS: 36415; 80048; 83880; 85025; 85610; 92960; 93005; J0461; J7030; Q0163; GO378

== ENCOUNTER 2019-11-13 05:58 | Day surgery (SDC) | payer MEDICARE, BC ==
[2019-11-12 12:09] LABS: BASOPHILS # (AUTO) 0.1 X10'3 (0-0.2); EOSINOPHILS # (AUTO) 0.1 X10'3 (0-0.9); EOSINOPHILS % (AUTO) 2.6 % (0-6); HEMOGLOBIN 14.9 g/dl (14.0-17.9); LYMPHOCYTES # (AUTO) 1.1 X10'3 (1.1-4.8); MEAN CORPUSCULAR HEMOGLOBIN 29.4 PG (27.0-31.0); MEAN CORPUSCULAR HGB CONC 32.4 g/dL (33.0-36.5); MEAN CORPUSCULAR VOLUME 90.8 FL (78-98); MEAN PLATELET VOLUME 8.4 FL (7.4-10.4); MONOCYTES # (AUTO) 0.6 X10'3 (0-0.9); MONOCYTES % (AUTO) 9.9 % (2-12); NEUTROPHILS # (AUTO) 3.9 X10'3 (1.8-7.7); NEUTROPHILS % (AUTO) 67.5 % (42-75); PLATELET COUNT 137 X10'3 (140-440); RED BLOOD COUNT 5.06 X10'6 (4.70-6.10); RED CELL DISTRIBUTION WIDTH 17.7 % (11.5-14.5); WHITE BLOOD COUNT 5.7 X10'3 (4.5-11.0)
[2019-11-12 12:15] LABS: ALBUMIN 3.6 G/DL (3.4-5.0); ANION GAP 6 (8-16); BLOOD UREA NITROGEN 23 MG/DL (7-18); BUN/CREATININE RATIO 18.4 (5.4-32.0); CALCIUM 8.9 MG/DL (8.5-10.1); CHLORIDE 108 MMOL/L (99-107); CREATININE 1.25 MG/DL (0.60-1.10); GLUCOSE 93 MG/DL (70-104); POTASSIUM 4.2 MMOL/L (3.5-5.1); SODIUM 145 MMOL/L (135-145); TOTAL CARBON DIOXIDE 31.4 MMOL/L (24-32); eGFR 56 ML/MIN
[2019-11-12 12:19] LABS: PARTIAL THROMBOPLASTIN TIME 28 SECONDS (22-32)
[~2019-11-13] VITALS: Ht 172.7 cm; Wt 106.3 kg
[2019-11-13] VITALS (10 sets, daily range): BP systolic 142–181; BP diastolic 51–90
[~2019-11-13 05:58] MED LIST changes: +ACET600C PO; -ALBU8.5H8 INH; -AMIO200T61 PO; +AMIO200T62 PO; -ATOR20TA66 PO; +FURO-149 PO; +HYDR12.55 PO; -LACT1CAP26 PO; +LACT1CAP65 PO; -LEVO750T46 PO; +LISI-600 PO; -LISI10TA4 PO; -METO-395 PO; -NITR0.4T51 SL; -PSYL575P22 PO; +VITAMIN D; +[UNRECOGNIZED DRUG - CODE]
[2019-11-13] MEDS ORDERED: normal saline 1,000 ML IV SCH (06:25)
[2019-11-13] MEDS ORDERED: cefazolin/dext.iso 2gm/100ml 100 ML IV ONE (06:30)
[2019-11-13] MEDS ORDERED: MELO-102 PO (06:42)
[2019-11-13] MEDS ORDERED: ACET600C PO (06:42)
[2019-11-13] MEDS ORDERED: midazolam 2 mg/2 ml injection ONE ×2 (07:44→08:38)
[2019-11-13] MEDS ORDERED: fentaNYL/PF 50MCG/1 ML 2ML syringe ONE (07:45)
[2019-11-13] MEDS ORDERED: LIDOcaine 1% W/epiNEPHrine 1:100,000 20ml vial ONE (07:45)
[2019-11-13] MEDS ORDERED: ceFAZolin 1000mg inj ONE (07:45)
--- NOTE | 2019-11-13 07:50 | NUR ---
Pt transported to cardiac cath lab radiology technologist via [facility].
--- NOTE | 2019-11-13 09:15 | NUR ---
Pt returned to room via nichole from clinical lab assistant. Pt awake, alert & in no acute distress. Sling present to Reji arm, procedure site stable, dressing CDI. Addendum: 11/13/19 at 1057 by Charo Freire RN Incorrect time entered. Pt returned to room at 0950.
[2019-11-13] MEDS ORDERED: VANCOMYCIN 1,500MG inj. 1,500 MG in normal saline 500ml IV soln 500 ML IV ONE (10:40)
[2019-11-13] MEDS ORDERED: HYDROcodone/acetaminophen 5mg/325mg tablet PO PRN (10:40)
[2019-11-13] MEDS ORDERED: HYDROcodone/acetaminophen 10/325mg tab PO PRN (10:40)
== END 2019-11-13 15:00 | disposition home or self-care (01) ==
LOC: SSTAY O 05:58 → MED 3N 05:58 → SSTAY O 15:00
PROVIDERS: ATTEND Internal Medicine Cardiovascular Disease
DX: I49.5 Sick sinus syndrome (principal); E78.5 Hyperlipidemia, unspecified; I25.10 Atherosclerotic heart disease of native coronary artery without angina pectoris; Z95.5 Presence of coronary angioplasty implant and graft; I44.1 Atrioventricular block, second degree; I48.92 Unspecified atrial flutter; I11.0 Hypertensive heart disease with heart failure; I50.9 Heart failure, unspecified; I35.0 Nonrheumatic aortic (valve) stenosis; I48.0 Paroxysmal atrial fibrillation; G47.30 Sleep apnea, unspecified; E66.3 Overweight; Z68.37 Body mass index [BMI] 37.0-37.9, adult; Z79.899 Other long term (current) drug therapy; Z79.01 Long term (current) use of anticoagulants; Z98.890 Other specified postprocedural states
CPT/HCPCS: 33208; 36415; 71046; 80048; 85025; 85610; 85730; 93005; 99152; 99153; C1785; C1898; J0690; J2250; J3010; J3370; J7030; J7040; A4565; A4620; A6449

== ENCOUNTER 2020-02-19 07:55 | Day surgery (SDC) | payer MEDICARE, BC ==
[2020-02-18 14:03] LABS: BASOPHILS # (AUTO) 0.1 X10'3 (0-0.2); BASOPHILS % (AUTO) 0.7 % (0-1); EOSINOPHILS # (AUTO) 0.2 X10'3 (0-0.9); EOSINOPHILS % (AUTO) 2.6 % (0-6); HEMATOCRIT 45.6 % (42.0-52.0); HEMOGLOBIN 14.9 g/dl (14.0-17.9); LYMPHOCYTES # (AUTO) 1.4 X10'3 (1.1-4.8); LYMPHOCYTES % (AUTO) 17.2 % (21-51); MEAN CORPUSCULAR HEMOGLOBIN 28.7 PG (27.0-31.0); MEAN CORPUSCULAR HGB CONC 32.7 g/dL (33.0-36.5); MEAN CORPUSCULAR VOLUME 87.7 FL (78-98); MEAN PLATELET VOLUME 8.5 FL (7.4-10.4); MONOCYTES # (AUTO) 0.9 X10'3 (0-0.9); MONOCYTES % (AUTO) 11.2 % (2-12); NEUTROPHILS # (AUTO) 5.6 X10'3 (1.8-7.7); NEUTROPHILS % (AUTO) 68.3 % (42-75); PLATELET COUNT 161 X10'3 (140-440); RED BLOOD COUNT 5.19 X10'6 (4.70-6.10); RED CELL DISTRIBUTION WIDTH 17.6 % (11.5-14.5); WHITE BLOOD COUNT 8.1 X10'3 (4.5-11.0)
[2020-02-18 14:10] LABS: ALBUMIN 3.5 G/DL (3.4-5.0); ANION GAP 5 (8-16); BLOOD UREA NITROGEN 20 MG/DL (7-18); BUN/CREATININE RATIO 16.3 (5.4-32.0); CALCIUM 8.4 MG/DL (8.5-10.1); CHLORIDE 107 MMOL/L (99-107); CREATININE 1.23 MG/DL (0.60-1.10); GLUCOSE 108 MG/DL (70-104); SODIUM 143 MMOL/L (135-145); TOTAL CARBON DIOXIDE 31.2 MMOL/L (24-32); eGFR 57 ML/MIN
[~2020-02-19] VITALS: Ht 172.7 cm; Wt 103.6 kg
[2020-02-19] VITALS (17 sets, daily range): BP systolic 136–163; BP diastolic 72–99
[~2020-02-19 07:55] MED LIST changes: +ASCO250T68; +MELO-102 PO; -[UNRECOGNIZED DRUG - CODE]
[2020-02-19] MEDS ORDERED: morphine 10mg/ml inj. IV ONE (08:15)
[2020-02-19] MEDS ORDERED: atropine 0.1mg/ml 10ml syringe IV ONE (08:15)
[2020-02-19] MEDS ORDERED: MIDAZolam 1mg/ml 10ml vial IV ONE (08:15)
[2020-02-19] MEDS ORDERED: normal saline 1000ml 1,000 ML IV SCH (08:15)
[2020-02-19] MEDS ORDERED: amiodarone 150mg/dext, iso-os 100 ML IV ONE (08:15)
[2020-02-19] MEDS ORDERED: diphenhydrAMINE 25mg capsule PO ONE (08:15)
[2020-02-19] MEDS ORDERED: LORazepam 0.5 MG tablet PO ONE (08:15)
[2020-02-19] MEDS ORDERED: METO25TA6 PO (09:45)
[2020-02-19] MEDS ORDERED: VIT1CAPS46 PO (09:47)
[2020-02-19] MEDS ORDERED: OLIV250C PO (09:47)
== END 2020-02-19 12:00 | disposition home or self-care (01) ==
LOC: SSTAY O 07:55
PROVIDERS: ATTEND Internal Medicine Cardiovascular Disease
DX: I48.19 Other persistent atrial fibrillation (principal); I48.92 Unspecified atrial flutter; I44.1 Atrioventricular block, second degree; E78.5 Hyperlipidemia, unspecified; I10 Essential (primary) hypertension; I25.10 Atherosclerotic heart disease of native coronary artery without angina pectoris; I49.5 Sick sinus syndrome; Z95.0 Presence of cardiac pacemaker; Z95.5 Presence of coronary angioplasty implant and graft; Z88.8 Allergy status to other drugs, medicaments and biological substances
CPT/HCPCS: 36415; 80048; 85025; 85610; 92960; 93005; 94760; J2250; J2270; J7030; Q0163

== ENCOUNTER 2020-05-27 08:42 | Outpatient (CLI) | payer MEDICARE, BC ==
[~2020-05-27] VITALS: Ht 172.7 cm; Wt 104.3 kg
[~2020-05-27 08:42] MED LIST changes: -CLOP75TA15 PO; -HYDR12.55 PO; -MELO-102 PO; +METO25TA6 PO; +OLIV250C PO; -TERA1CAP4 PO; +VIT1CAPS46 PO
[2020-05-27] MEDS ORDERED: albuterol 2.5 MG/3 ML nebule NEB PRN (09:20)
== END 2020-05-27 23:59 | disposition home or self-care (01) ==
LOC: RT 08:42
PROVIDERS: ATTEND Internal Medicine Cardiovascular Disease
DX: I48.91 Unspecified atrial fibrillation (principal); R06.02 Shortness of breath
CPT/HCPCS: 71046; 85018; 94060; 94727; 94729; 94760

== ENCOUNTER 2020-12-30 07:46 | Day surgery (SDC) | payer MEDICARE, BC ==
[2020-12-29 17:03] LABS: BASOPHILS % (AUTO) 0.7 % (0-1); EOSINOPHILS # (AUTO) 0.2 X10'3 (0-0.9); EOSINOPHILS % (AUTO) 3.4 % (0-6); HEMATOCRIT 46.3 % (42.0-52.0); HEMOGLOBIN 15.2 g/dl (14.0-17.9); LYMPHOCYTES # (AUTO) 1.4 X10'3 (1.1-4.8); LYMPHOCYTES % (AUTO) 20.2 % (21-51); MEAN CORPUSCULAR HEMOGLOBIN 31.3 PG (27.0-31.0); MEAN CORPUSCULAR HGB CONC 32.8 g/dL (33.0-36.5); MEAN CORPUSCULAR VOLUME 95.6 FL (78-98); MEAN PLATELET VOLUME 9.1 FL (7.4-10.4); MONOCYTES # (AUTO) 0.5 X10'3 (0-0.9); MONOCYTES % (AUTO) 7.3 % (2-12); NEUTROPHILS # (AUTO) 4.8 X10'3 (1.8-7.7); NEUTROPHILS % (AUTO) 68.4 % (42-75); PLATELET COUNT 138 X10'3 (140-440); RED BLOOD COUNT 4.85 X10'6 (4.70-6.10); RED CELL DISTRIBUTION WIDTH 15.4 % (11.5-14.5)
[2020-12-29 17:18] LABS: ALANINE AMINOTRANSFERASE 27 U/L (12-78); ALBUMIN 3.6 G/DL (3.4-5.0); ALKALINE PHOSPHATASE 114 IU/L (46-116); ANION GAP 8 (8-16); ASPARTATE AMINO TRANSFERASE 22 U/L (10-37); BILIRUBIN,TOTAL 0.7 MG/DL (0.1-1.0); BLOOD UREA NITROGEN 21 MG/DL (7-18); BUN/CREATININE RATIO 16.7 (5.4-32.0); CALCIUM 8.4 MG/DL (8.5-10.1); CHLORIDE 104 MMOL/L (99-107); CREATININE 1.26 MG/DL (0.60-1.10); GLUCOSE 147 MG/DL (70-104); POTASSIUM 3.5 MMOL/L (3.5-5.1); SODIUM 143 MMOL/L (135-145); TOTAL PROTEIN 7.2 G/DL (6.4-8.2); eGFR 55 ML/MIN
[~2020-12-30] VITALS: Ht 172.7 cm; Wt 107.5 kg
[2020-12-30] VITALS (13 sets, daily range): BP systolic 127–170; BP diastolic 73–96
[~2020-12-30 07:46] MED LIST changes: -LISI-600 PO; +LISI20TA28 PO; +LOP25T PO; -METO25TA6 PO
[2020-12-30] MEDS ORDERED: MIDAZolam 1mg/ml 10ml vial IV ONE (08:10)
[2020-12-30] MEDS ORDERED: morphine 10mg/ml inj. IV ONE (08:10)
[2020-12-30] MEDS ORDERED: diphenhydrAMINE 25mg capsule PO ONE (08:10)
[2020-12-30] MEDS ORDERED: normal saline 1000ml 1,000 ML IV SCH (08:10)
[2020-12-30] MEDS ORDERED: amiodarone 150mg/dext, iso-os 100 ML IV ONE (08:10)
[2020-12-30] MEDS ORDERED: atropine 0.1mg/ml 10ml syringe IV ONE (08:10)
[2020-12-30] MEDS ORDERED: LORazepam 0.5 MG tablet PO ONE (08:10)
[2020-12-30] MEDS ORDERED: POTA20TA19 PO (08:26)
[2020-12-30] MEDS ORDERED: TERA1CAP4 PO (08:32)
== END 2020-12-30 13:20 | disposition home or self-care (01) ==
LOC: SSTAY O 07:46
PROVIDERS: ATTEND Internal Medicine Cardiovascular Disease
DX: I48.0 Paroxysmal atrial fibrillation (principal); I48.92 Unspecified atrial flutter; I11.0 Hypertensive heart disease with heart failure; I50.9 Heart failure, unspecified; I35.0 Nonrheumatic aortic (valve) stenosis; E78.5 Hyperlipidemia, unspecified; I25.10 Atherosclerotic heart disease of native coronary artery without angina pectoris; G47.30 Sleep apnea, unspecified; I44.1 Atrioventricular block, second degree; E66.9 Obesity, unspecified; Z68.36 Body mass index [BMI] 36.0-36.9, adult; M19.90 Unspecified osteoarthritis, unspecified site; Z95.0 Presence of cardiac pacemaker; Z79.01 Long term (current) use of anticoagulants; Z79.899 Other long term (current) drug therapy; Z95.5 Presence of coronary angioplasty implant and graft; Z98.890 Other specified postprocedural states; Z82.3 Family history of stroke; Z80.9 Family history of malignant neoplasm, unspecified
CPT/HCPCS: 36415; 71046; 80053; 85025; 85610; 92960; 93005; J2250; J2270; J7030; Q0163

== ENCOUNTER 2021-08-26 05:59 | Day surgery (SDC) | payer MEDICARE, BC ==
[2021-08-25 12:53] LABS: ALBUMIN 3.7 G/DL (3.4-5.0); ANION GAP 8 (8-16); BLOOD UREA NITROGEN 20 MG/DL (7-18); BUN/CREATININE RATIO 17.9 (5.4-32.0); CALCIUM 8.5 MG/DL (8.5-10.1); CHLORIDE 106 MMOL/L (99-107); CREATININE 1.12 MG/DL (0.60-1.10); GLUCOSE 110 MG/DL (70-104); POTASSIUM 4.2 MMOL/L (3.5-5.1); SODIUM 142 MMOL/L (135-145); TOTAL CARBON DIOXIDE 28.5 MMOL/L (24-32); eGFR 63 ML/MIN
[2021-08-25 12:57] LABS: APTT 29 SECONDS (22-32)
[2021-08-25 13:04] LABS: BASOPHILS # (AUTO) 0.1 X10'3 (0-0.2); BASOPHILS % (AUTO) 0.8 % (0-1); EOSINOPHILS # (AUTO) 0.3 X10'3 (0-0.9); EOSINOPHILS % (AUTO) 4.1 % (0-6); HEMATOCRIT 47.7 % (42.0-52.0); LYMPHOCYTES # (AUTO) 1.2 X10'3 (1.1-4.8); LYMPHOCYTES % (AUTO) 16.7 % (21-51); MEAN CORPUSCULAR HEMOGLOBIN 31.4 PG (27.0-31.0); MEAN CORPUSCULAR HGB CONC 33.4 g/dL (33.0-36.5); MEAN CORPUSCULAR VOLUME 93.9 FL (78-98); MEAN PLATELET VOLUME 8.7 FL (7.4-10.4); MONOCYTES # (AUTO) 0.6 X10'3 (0-0.9); MONOCYTES % (AUTO) 7.9 % (2-12); NEUTROPHILS % (AUTO) 70.5 % (42-75); PLATELET COUNT 136 X10'3 (140-440); RED BLOOD COUNT 5.08 X10'6 (4.70-6.10); WHITE BLOOD COUNT 7.1 X10'3 (4.5-11.0)
[~2021-08-26] VITALS: Ht 172.7 cm; Wt 114.8 kg
[2021-08-26] VITALS (11 sets, daily range): BP systolic 134–180; BP diastolic 71–111
[~2021-08-26 05:59] MED LIST changes: -LACT1CAP65 PO; -LISI20TA28 PO; -OLIV250C PO; +POTA-207 PO; -POTA8CAP20 PO; +TERA1CAP4 PO
[2021-08-26] MEDS ORDERED: diphenhydrAMINE 25mg capsule PO PRN (06:25)
[2021-08-26] MEDS ORDERED: normal saline 1,000 ML IV SCH (06:25)
[2021-08-26] MEDS ORDERED: LORazepam 0.5 MG tablet PO PRN (06:25)
[2021-08-26] MEDS: LIDOcaine/PRILOcaine 5gm cream TP ONE ×2 (07:00→07:09)
[2021-08-26] MEDS ORDERED: nitroGLYCERIN-Tridil 50MG/D5W 250 ML IV ONE (07:24)
[2021-08-26] MEDS ORDERED: iohexol 350 MG/ML 50ML vial IV ONE (07:25)
[2021-08-26] MEDS ORDERED: fentaNYL/PF 50MCG/1 ML 2ML syringe ONE (07:25)
[2021-08-26] MEDS ORDERED: verapamil 2.5 mg/ml inj IV ONE (07:25)
[2021-08-26] MEDS ORDERED: heparin 1,000unit/ml 10ml vial 10 ML ONE (07:25)
[2021-08-26] MEDS ORDERED: LIDOcaine 1% (10mg/ml)w/preservative injection 20ml MDV ONE (07:25)
[2021-08-26] MEDS ORDERED: midazolam 1 mg/ML 2ml injection ONE (07:25)
[2021-08-26] MEDS ORDERED: iohexol 350MG/ML 100ml bottle IV ONE ×2 (07:25→08:51)
[2021-08-26] MEDS ORDERED: LIDOcaine/PRILOcaine 5gm cream TP STA (07:44)
[2021-08-26] MEDS ORDERED: furosemide 40mg/4ml inj ONE (09:15)
[2021-08-26] MEDS ORDERED: hydrALAZINE 20mg/ml inj. IV ONE (09:26)
[2021-08-26] MEDS ORDERED: normal saline 1000ml 1,000 ML IV SCH (09:55)
[2021-08-30 07:02] LABS: ISTAT Hct MIX 45 %PCV (42-52); ISTAT O2 SATURATION MIX VENOUS 62 % (60-80); ISTAT SOURCE BLNK
[2021-08-30 07:03] LABS: ISTAT HGB ART 15.6 g/dl (14.0-18.0); ISTAT Hct ART 46 %PCV (42-52); ISTAT O2 SATURATION ARTERIAL 95 % (95-98); ISTAT SOURCE BLNK
== END 2021-08-26 14:54 | disposition home or self-care (01) ==
LOC: SSTAY O 05:59
PROVIDERS: ATTEND Internal Medicine Cardiovascular Disease
DX: R94.39 Abnormal result of other cardiovascular function study (principal); R53.83 Other fatigue; R06.02 Shortness of breath; I25.10 Atherosclerotic heart disease of native coronary artery without angina pectoris; I11.0 Hypertensive heart disease with heart failure; I50.22 Chronic systolic (congestive) heart failure; I48.0 Paroxysmal atrial fibrillation; G47.30 Sleep apnea, unspecified; E78.5 Hyperlipidemia, unspecified; I35.0 Nonrheumatic aortic (valve) stenosis; E66.9 Obesity, unspecified; Z68.38 Body mass index [BMI] 38.0-38.9, adult; Z95.0 Presence of cardiac pacemaker; Z95.5 Presence of coronary angioplasty implant and graft; Z79.01 Long term (current) use of anticoagulants; Z79.899 Other long term (current) drug therapy; Z98.890 Other specified postprocedural states
CPT/HCPCS: 36415; 76937; 80048; 82803; 85014; 85025; 85610; 85730; 93005; 93460; 99152; 99153; C1751; C1769; C1894; J0360; J1644; J1940; J2250; J3010; J3490; J7030; Q0163; Q9967; A4620; A5120

== ENCOUNTER 2021-12-24 09:01 | Outpatient (CLI) | payer MEDICARE, BC ==
[~2021-12-24] VITALS: Ht 172.7 cm; Wt 108.9 kg
[~2021-12-24 09:01] MED LIST changes: -ACET600C PO
[2021-12-24 09:49] LABS: BASOPHILS # (AUTO) 0.1 X10'3 (0-0.2); BASOPHILS % (AUTO) 0.8 % (0-1); EOSINOPHILS # (AUTO) 0.3 X10'3 (0-0.9); EOSINOPHILS % (AUTO) 4.9 % (0-6); HEMATOCRIT 50.9 % (42.0-52.0); HEMOGLOBIN 16.7 g/dl (14.0-17.9); LYMPHOCYTES # (AUTO) 1.3 X10'3 (1.1-4.8); LYMPHOCYTES % (AUTO) 18.8 % (21-51); MEAN CORPUSCULAR HEMOGLOBIN 30.3 PG (27.0-31.0); MEAN CORPUSCULAR HGB CONC 32.7 g/dL (33.0-36.5); MEAN CORPUSCULAR VOLUME 92.4 FL (78-98); MEAN PLATELET VOLUME 8.4 FL (7.4-10.4); MONOCYTES # (AUTO) 0.6 X10'3 (0-0.9); NEUTROPHILS # (AUTO) 4.4 X10'3 (1.8-7.7); NEUTROPHILS % (AUTO) 66.5 % (42-75); PLATELET COUNT 124 X10'3 (140-440); RED BLOOD COUNT 5.51 X10'6 (4.70-6.10); RED CELL DISTRIBUTION WIDTH 16.4 % (11.5-14.5); WHITE BLOOD COUNT 6.7 X10'3 (4.5-11.0)
[2021-12-24 09:56] LABS: APTT 31 SECONDS (22-32)
[2021-12-24 09:59] LABS: ALANINE AMINOTRANSFERASE 39 U/L (12-78); ALBUMIN 3.7 G/DL (3.4-5.0); ALBUMIN/GLOBULIN RATIO 0.9 (1.1-1.5); ALKALINE PHOSPHATASE 59 IU/L (46-116); ANION GAP 8 (8-16); ASPARTATE AMINO TRANSFERASE 35 U/L (10-37); BILIRUBIN,TOTAL 0.8 MG/DL (0.1-1.0); BLOOD UREA NITROGEN 24 MG/DL (7-18); CHLORIDE 104 MMOL/L (99-107); GLUCOSE 124 MG/DL (70-104); POTASSIUM 4.1 MMOL/L (3.5-5.1); SODIUM 140 MMOL/L (135-145); TOTAL CARBON DIOXIDE 27.9 MMOL/L (24-32); TOTAL PROTEIN 7.9 G/DL (6.4-8.2); eGFR 58 ML/MIN
[2021-12-24] MEDS ORDERED: IODIXANOL 320 MG/ML INFUS..BTL 50ML IV ONE (11:52)
[2021-12-24] MEDS ORDERED: IODIXANOL 320 MG/ML INFUS..BTL 100ML IV ONE (11:52)
[2021-12-24 13:15] LABS: ABG BASE EXCESS 1.9 mmol/L (-2.0-2.0); ABG HCO3 27.2 mmol/L (22.0-26.0); ABG PCO2 (T) 45.1 mmHg (35.0-48.0); ALLEN'S TEST POSITIVE; FCOHb 1.2 % (0.0-3.9); FMetHb 0.2 % (0.0-1.5); FO2Hb 93.7 % (94-97); TOTAL HEMOGLOBIN 16.6 G/dl (14.0-18.0)
[2021-12-24] MEDS ORDERED: albuterol 2.5 MG/3 ML nebule NEB ONE (13:45)
== END 2021-12-24 23:59 | disposition home or self-care (01) ==
LOC: RAD 09:01
PROVIDERS: ATTEND Internal Medicine Cardiovascular Disease
DX: Z01.818 Encounter for other preprocedural examination (principal); I70.0 Atherosclerosis of aorta; I70.8 Atherosclerosis of other arteries; I51.7 Cardiomegaly; I65.23 Occlusion and stenosis of bilateral carotid arteries; K40.20 Bilateral inguinal hernia, without obstruction or gangrene, not specified as recurrent; Z79.899 Other long term (current) drug therapy
CPT/HCPCS: 36415; 36600; 71046; 71275; 74174; 80053; 82803; 85018; 85025; 85610; 85730; 93880; 94060; 94727; 94729; 94760; Q9967

== ENCOUNTER 2022-01-06 10:29 | Day surgery (SDC) | payer MEDICARE, BC ==
[2022-01-06] VITALS (8 sets, daily range): BP systolic 157–202; BP diastolic 83–107
[~2022-01-06] VITALS: Ht 172.7 cm; Wt 110.5 kg
[2022-01-06] MEDS ORDERED: ROSU20TA31 PO (11:14)
[2022-01-06] MEDS ORDERED: FLO0.4C PO (11:14)
[2022-01-06] MEDS ORDERED: ASPI-611 PO (11:15)
--- NOTE | 2022-01-06 11:20 | NUR ---
Smitha, dialysis chief equipment technician in the room performing echo. She was able to get a good picture so she will contact Dr. Berkowitz to see if we still need to do the OLIVIA.
[2022-01-06] MEDS ORDERED: fentaNYL/PF 50MCG/1 ML 2ML syringe IV PRN (11:30)
[2022-01-06] MEDS ORDERED: MIDAZolam 1mg/ml 10ml vial IV PRN (11:30)
--- NOTE | 2022-01-06 11:42 | NUR ---
Dr Berkowitz at bedside. No OLIVIA needed. New orders for dobutamine stress echo.
[2022-01-06] MEDS ORDERED: DOBUTamine 2000 MCG/250ML BAG IV SCH ×2 (11:55→12:02)
== END 2022-01-06 14:30 | disposition home or self-care (01) ==
LOC: SSTAY O 10:29 → EDSTATUS 13:00 → SSTAY O 14:30
PROVIDERS: ATTEND Internal Medicine Cardiovascular Disease
DX: R94.39 Abnormal result of other cardiovascular function study (principal)
CPT/HCPCS: 93350; J1250

== ENCOUNTER 2022-01-20 07:45 | Inpatient (IN) | payer MEDICARE, BC ==
[2022-01-17 11:30] LABS: BASOPHILS % (AUTO) 0.6 % (0-1); EOSINOPHILS # (AUTO) 0.4 X10'3 (0-0.9); EOSINOPHILS % (AUTO) 4.9 % (0-6); LYMPHOCYTES # (AUTO) 1.1 X10'3 (1.1-4.8); LYMPHOCYTES % (AUTO) 14.9 % (21-51); MEAN CORPUSCULAR HEMOGLOBIN 30.8 PG (27.0-31.0); MEAN CORPUSCULAR HGB CONC 33.6 g/dL (33.0-36.5); MEAN CORPUSCULAR VOLUME 91.6 FL (78-98); MEAN PLATELET VOLUME 8.3 FL (7.4-10.4); MONOCYTES # (AUTO) 0.6 X10'3 (0-0.9); MONOCYTES % (AUTO) 7.9 % (2-12); NEUTROPHILS # (AUTO) 5.5 X10'3 (1.8-7.7); NEUTROPHILS % (AUTO) 71.7 % (42-75); PRE OP HEMATOCRIT 48.5 % (42.0-52.0); PRE OP HEMOGLOBIN 16.3 g/dL (14.0-17.9); PRE OP PLATELET COUNT 114 X10'3 (140-440); RED BLOOD COUNT 5.29 X10'6 (4.70-6.10); RED CELL DISTRIBUTION WIDTH 16.1 % (11.5-14.5)
[2022-01-17 11:31] LABS: CLARITY,URINE CLEAR (Clear); COLOR,URINE YELLOW (Yellow); GLUCOSE, URINE NEGATIVE (Neg); KETONES,URINE NEGATIVE (Neg); LEUKOCYTE ESTERASE ,URINE NEGATIVE (Neg); NITRITES, URINE NEGATIVE (Neg); OCCULT BLOOD,URINE NEGATIVE (Neg); PROTEIN,URINE NEGATIVE (Neg); UROBILINOGEN,URINE 0.2 E.U/dL (0.2-1.0)
[2022-01-17 11:35] LABS: UA COLLECTION TYPE CLN CATCH MIDSTREAM
[2022-01-17 11:44] LABS: PRE OP INR 1.2 INR
[2022-01-17 11:45] LABS: ALBUMIN 3.9 G/DL (3.4-5.0); ALKALINE PHOSPHATASE 53 IU/L (46-116); BLOOD UREA NITROGEN 20 MG/DL (7-18); BUN/CREATININE RATIO 17.9 (5.4-32.0); CALCIUM 8.5 MG/DL (8.5-10.1); CHLORIDE 103 MMOL/L (99-107); CREATININE 1.12 MG/DL (0.60-1.10); PRE OP ALT 32 U/L (30-65); PRE OP ANION GAP 7 (8-16); PRE OP AST 29 U/L (10-37); PRE OP BILIRUB, TOTAL 1.2 MG/DL (0.0-1.0); PRE OP GLUCOSE 118 MG/DL (70-104); PRE OP POTASSIUM 3.7 MMOL/L (3.4-5.1); PRE OP SODIUM 140 MMOL/L (135-145); TOTAL CARBON DIOXIDE 29.7 MMOL/L (24-32); eGFR 63 ML/MIN
[~2022-01-20] VITALS: Ht 172.7 cm; Wt 110.7 kg
[2022-01-20] VITALS (34 sets, daily range): BP systolic 113–193; BP diastolic 47–109
[2022-01-20] MEDS: phenylephrine inj 50 MG in normal saline 250ml IV solN IV SCH ×2 (05:30→20:34)
[~2022-01-20 07:45] MED LIST changes: -AMIO200T62 PO; -APIX5TAB3 PO; -ASCO250T68; +ASPI-611 PO; +DOCUMENT DATE & TIME OF BETA-BLOCKER PO ONE; +FLO0.4C PO; +PSYL660P17 PO; +ROSU20TA31 PO; -TERA1CAP4 PO; -VIT1CAPS46 PO; -VITAMIN D; +[UNRECOGNIZED DRUG - OTHER]; +aspirin 325mg tablet PO ONE; +nitroPRUSSIDE (NIPRIDE) (200MCG/ML) 100ML Drip IV SCH; +ondansetron/PF 4mg/2ml inj IV PRN; +protamine sulfate 10mg/ml inj. ONE
[2022-01-20] MEDS ORDERED: iohexol 350 MG/ML 50ML vial IV ONE (08:00)
[2022-01-20] MEDS ORDERED: LIDOCAINE HCL 10 MG/ML 1% MDV 50ml injection ONE (08:00)
[2022-01-20] MEDS ORDERED: heparin 1,000 UNITS/NS 500ml 1,500 ML ONE (10:55)
[2022-01-20] MEDS ORDERED: iohexol 350MG/ML 100ml bottle IV ONE ×2 (10:55→10:57)
[2022-01-20] MEDS ORDERED: sevoflurane 250ml liquid IH ONE (11:14)
[2022-01-20] MEDS ORDERED: hydrALAZINE 20mg/ml inj. IV ONE (11:14)
[2022-01-20] MEDS ORDERED: DOBUTamine-DoBUTrex 500mg/D5W 0 ML IV ONE (11:14)
[2022-01-20] MEDS ORDERED: fentaNYL/PF 50MCG/1 ML 2ML syringe ONE (11:17)
[2022-01-20] MEDS ORDERED: glycopyrrolate 0.2mg/ml inj ONE (12:00)
[2022-01-20] MEDS ORDERED: neostigmine methylsulfate 1 MG/ML 10ml vial ONE (12:00)
[2022-01-20] MEDS ORDERED: heparin 1,000unit/ml 10ml vial 20 ML ONE (12:00)
[2022-01-20] MEDS ORDERED: ondansetron/PF 4mg/2ml inj ONE (12:00)
[2022-01-20] MEDS ORDERED: propofol inj 20 ML IV ONE (12:00)
[2022-01-20] MEDS ORDERED: LIDOcaine 2% (20mg/ml) 5ml vial ONE (12:00)
[2022-01-20] MEDS ORDERED: rocuronium 10mg/ml inj IV ONE (12:00)
[2022-01-20] MEDS ORDERED: pantoprazole 40mg Tablet.DR PO PRN (12:30)
[2022-01-20] MEDS ORDERED: docusate sod 100mg capsule PO PRN (12:30)
[2022-01-20] MEDS ORDERED: diphenhydrAMINE 25mg capsule PO PRN (12:30)
[2022-01-20] MEDS ORDERED: acetaminophen 325mg tablet PO PRN (12:30)
[2022-01-20] MEDS ORDERED: ondansetron/PF 4mg/2ml inj IV PRN (12:30)
[2022-01-20] MEDS ORDERED: normal saline 1000ml 1,000 ML IV SCH (12:30)
[2022-01-20] MEDS ORDERED: proCHLORperazine 10 MG/2 ml inj IV PRN (12:30)
[2022-01-20] MEDS ORDERED: ALPRAZolam 0.25mg tablet PO PRN (12:30)
[2022-01-20] MEDS ORDERED: sugammadex 200mg/2ml injection IV ONE (12:40)
--- NOTE | 2022-01-20 12:45 | NUR ---
Received from OR via BED, accompanied by Anesthesiologist DR JERONIMO and report given by Anesthesiologist AND OR/PIPE WELDER RN. PT DROWSY BUT APPROPRIATE, DENIES PAIN. BILAT GROINS W/ANISHA KITCHEN CDI, SCANT AMT OF OLD BLOOD ON RIGHT CREASE OF GROIN. NEURO CHECKS INTACT, SMILE, SQUINTING/FROWNING SYMMETRICAL, TONGUE MIDLINE, BILAT HAND WINDOWS SERVER ADMINISTRATOR EQUAL, PUSH/PULL W/LEGS/FEET EQUAL STRENGTH. EKG OBTAINED, BREATHING TX ORDERED. Addendum: 01/20/22 at 1411 by Rosy Mohr RN Amended: Links added.
[2022-01-20] MEDS ORDERED: PSYL1040 PO (13:02)
[2022-01-20] MEDS ORDERED: ipratropium/albuterol 3ml nebule NEB ONE (13:15)
[2022-01-20] MEDS: hydrALAZINE 20mg/ml inj. IV PRN ×2 (14:07→14:40)
[2022-01-20] MEDS ORDERED: LIDOcaine 1% W/epiNEPHrine 1:100,000 20ml vial ONE (15:09)
--- NOTE | 2022-01-20 15:30 | NUR ---
PT NOTED TO HAVE OOZING ON BILAT GROIN DRSG'S. LEFT GREATER THAN RIGHT, BOTH GROINS SOFT, NO SWELLING, HEMATOMA NOTED. LIGHT PRESSURE HELD FOR APPROX 8 MINUTES ON LEFT SIDE, OOZING SEEMS TO HAVE STOPPED, CALL INTO DR ESPINO AND UPDATED. DR ESPINO CAME UP TO ASSESS PT, INJECTED LIDOCAINE/EPI INTO BILAT PUNCTURE SITES, NEW DRSGS APPLIED, OOZING CEASED. OKAY TO D/C PT TO PCU. LEFT ARTERIAL LINE D/CD, MANUAL PRESSURE HELD, DRGS APPLIED. HEMOSTASIS ACHIEVED. PT RESTING COMFORTABLE. Addendum: 01/20/22 at 1622 by Rosy Mohr RN Amended: Links added.
[2022-01-20] MEDS ORDERED: ceFAZolin 1GM/D5W- ADD-VANTAGE 50 ML IV SCH (16:00)
[2022-01-20] MEDS: sod chloride 0.9% 10ml flush syringe IV SCH ×2 (16:00→23:25)
--- NOTE | 2022-01-20 16:35 | NUR ---
Report called to receiving nurse. Transferred via BED ON CM W/1 BAG OF Belongings, GLASSES AND BILAT HEARING AIDS IN PTS EARS TO ROOM 3022A. RECEIVING RN AT BEDSIDE TO RECEIVE PT, BLL, CALL LIGHT GIVEN, SIDE RAILS UP X 2. PTS IN ROOM. REASSESSED CARLOS COLVIN W/RN, NO CHANGES NOTED, BOTH SIDES REMAIN CDI. Special Issues communicated to receiving nurse. YES, Addendum: 01/20/22 at 1659 by Rosy Mohr RN Amended: Links added.
[2022-01-20] MEDS: labetalol 20mg/4ml (5mg/ml) syringe IV PRN ×2 (17:58→23:13)
[2022-01-20] MEDS ORDERED: psyllium seed 3.4 gm packet PO SCH (21:00)
[2022-01-20] MEDS ORDERED: atorvastatin 20mg tablet PO SCH (21:00)
[2022-01-20] MEDS ORDERED: tamsulosin 0.4mg capsule PO SCH (21:00)
[2022-01-20] MEDS: vancomycin/NS 1 GM ADD-VANTAGE 250 ML IV SCH (21:15)
[2022-01-20] MEDS: metoprolol tartrate 25mg tablet PO SCH (21:16)
[2022-01-20] MEDS: OMEGA-3/DHA/EPA/FISH OIL 1 EACH CAPSULE.DR PO SCH (21:16)
[2022-01-20] MEDS: furosemide 40mg tablet PO SCH (21:17)
[2022-01-21 02:00] VITALS: BP 143/69
[2022-01-21] MEDS: ceFAZolin 1GM/D5W- ADD-VANTAGE 50 ML IV SCH ×2 (02:32→10:45)
[2022-01-21 02:57] VITALS: BP 124/67
[2022-01-21] MEDS ORDERED: ringers solution, lacted 1,000 ML IV SCH (05:00)
[2022-01-21] MEDS ORDERED: vancomycin 1,500 MG in NS 300ml IV soln IV ONE (05:30)
[2022-01-21] MEDS ORDERED: ceFAZolin inj. 2,000 MG in dextrose 5%-water 100 ML IV ONE (05:30)
[2022-01-21] MEDS ORDERED: famotidine 20mg tablet PO ONE (05:30)
--- NOTE | 2022-01-21 05:46 | NUR ---
pt retaining urine, bladder scan shows >466. Called Dr. Berkowitz for straight cath order, waiting assistant director of plant operations back. Addendum: 01/21/22 at 0605 by Nighat Johnson RN Dr. Berkowitz gave verbal order for straight cath.
[2022-01-21 06:00] VITALS: BP 144/66
[2022-01-21 06:46] LABS: BASOPHILS % (AUTO) 0.4 % (0-1); EOSINOPHILS # (AUTO) 0.1 X10'3 (0-0.9); EOSINOPHILS % (AUTO) 1.3 % (0-6); HEMATOCRIT 46.4 % (42.0-52.0); HEMOGLOBIN 15.2 g/dl (14.0-17.9); LYMPHOCYTES # (AUTO) 0.8 X10'3 (1.1-4.8); MEAN CORPUSCULAR HEMOGLOBIN 30.4 PG (27.0-31.0); MEAN CORPUSCULAR HGB CONC 32.8 g/dL (33.0-36.5); MEAN CORPUSCULAR VOLUME 92.7 FL (78-98); MEAN PLATELET VOLUME 8.5 FL (7.4-10.4); MONOCYTES % (AUTO) 10.6 % (2-12); NEUTROPHILS # (AUTO) 7.9 X10'3 (1.8-7.7); NEUTROPHILS % (AUTO) 79.7 % (42-75); PLATELET COUNT 99 X10'3 (140-440); RED BLOOD COUNT 5.01 X10'6 (4.70-6.10); RED CELL DISTRIBUTION WIDTH 16.1 % (11.5-14.5); WHITE BLOOD COUNT 9.9 X10'3 (4.5-11.0)
[2022-01-21 07:11] LABS: ALANINE AMINOTRANSFERASE 22 U/L (12-78); ALBUMIN/GLOBULIN RATIO 0.8 (1.1-1.5); ALKALINE PHOSPHATASE 34 IU/L (46-116); ANION GAP 7 (8-16); ASPARTATE AMINO TRANSFERASE 31 U/L (10-37); BILIRUBIN,TOTAL 1.8 MG/DL (0.1-1.0); BLOOD UREA NITROGEN 18 MG/DL (7-18); BUN/CREATININE RATIO 15.9 (5.4-32.0); CALCIUM 8.3 MG/DL (8.5-10.1); CHLORIDE 104 MMOL/L (99-107); CREATININE 1.13 MG/DL (0.60-1.10); GLUCOSE 118 MG/DL (70-104); SODIUM 138 MMOL/L (135-145); TOTAL CARBON DIOXIDE 27.4 MMOL/L (24-32); TOTAL PROTEIN 6.8 G/DL (6.4-8.2); eGFR 63 ML/MIN
[2022-01-21] MEDS ORDERED: potassium Cl 20 mEq SR tablet PO SCH (08:00)
[2022-01-21] MEDS ORDERED: aspirin 81mg, enteric-coated 1 TAB TABLET.DR PO SCH (08:00)
[2022-01-21] MEDS: furosemide 40mg tablet PO SCH (08:28)
[2022-01-21] MEDS: OMEGA-3/DHA/EPA/FISH OIL 1 EACH CAPSULE.DR PO SCH (08:28)
[2022-01-21] MEDS: sod chloride 0.9% 10ml flush syringe IV SCH (08:29)
[2022-01-21] MEDS: metoprolol tartrate 25mg tablet PO SCH (08:29)
[2022-01-21] MEDS: vancomycin/NS 1 GM ADD-VANTAGE 250 ML IV SCH (08:29)
--- NOTE | 2022-01-21 09:53 | NUR ---
Pt ambulated 300 ft around the unit this am. No dizziness. pt stated slight sob. Otherwise pt stated he felt good to get up and walk. Will continue to monitor.
[2022-01-21 11:00] VITALS: BP 143/67
--- NOTE | 2022-01-21 13:49 | NUR ---
Discussed all discharge instructions with patient. Talked about TAVR and the documents that accompany his valve.We discussed all doctor appointments extensively. Pt stated he understood all information. Pt's spouse is at the bedside helping him get dressed. Will leave unit via wheelchair.
== END 2022-01-21 14:01 | disposition home or self-care (01) | DRG 266 ==
LOC: PAS IN 07:45 → PCU 3S 16:44
PROVIDERS: ADMIT Internal Medicine Cardiovascular Disease; ATTEND Internal Medicine Cardiovascular Disease
PROC: B41D1ZZ Fluoroscopy of Aorta and Bilateral Lower Extremity Arteries using Low Osmolar Contrast (ICD-10-PCS; 2022-01-20)
PROC: X2RF332 Replacement of Aortic Valve using Zooplastic Tissue, Rapid Deployment Technique, Percutaneous Approach, New Technology Group 2 (ICD-10-PCS; principal; 2022-01-20 11:14)
DX: I35.0 Nonrheumatic aortic (valve) stenosis (principal); I50.23 Acute on chronic systolic (congestive) heart failure; I48.0 Paroxysmal atrial fibrillation; G47.33 Obstructive sleep apnea (adult) (pediatric); I11.0 Hypertensive heart disease with heart failure; K57.90 Diverticulosis of intestine, part unspecified, without perforation or abscess without bleeding; E78.5 Hyperlipidemia, unspecified; I49.5 Sick sinus syndrome; E66.9 Obesity, unspecified; R35.0 Frequency of micturition; I25.10 Atherosclerotic heart disease of native coronary artery without angina pectoris; Z95.0 Presence of cardiac pacemaker; Z95.5 Presence of coronary angioplasty implant and graft; Z68.37 Body mass index [BMI] 37.0-37.9, adult; Z00.6 Encounter for examination for normal comparison and control in clinical research program
CPT/HCPCS: 33361; 36415; 71045; 80053; 81003; 82948; 83735; 83880; 85025; 85347; 85610; 85730; 86885; 86900; 86901; 86920; 87081; 93005; 93308; 93355; 94640; 94760; A4615; A4618; A6258; A6449; C1756; C1760; C1769; C1894; G0378; J0360; J0690; J1250; J1644; J2370; J2405; J2704; J2710; J2720; J3010; J3370; J3490; J7030; J7040; J7050; J7060; J7120; Q9967

== ENCOUNTER 2022-12-27 06:50 | Day surgery (SDC) | payer MEDICARE, BC ==
[2022-12-26 09:41] LABS: BASOPHILS # (AUTO) 0.1 X10'3 (0-0.2); EOSINOPHILS # (AUTO) 0.2 X10'3 (0-0.9); EOSINOPHILS % (AUTO) 3.6 % (0-6); HEMATOCRIT 47.4 % (42.0-52.0); HEMOGLOBIN 15.7 g/dl (14.0-17.9); LYMPHOCYTES # (AUTO) 0.7 X10'3 (1.1-4.8); LYMPHOCYTES % (AUTO) 11.8 % (21-51); MEAN CORPUSCULAR HEMOGLOBIN 31.9 PG (27.0-31.0); MEAN CORPUSCULAR HGB CONC 33.2 g/dL (33.0-36.5); MEAN CORPUSCULAR VOLUME 96.3 FL (78-98); MEAN PLATELET VOLUME 8.9 FL (7.4-10.4); MONOCYTES # (AUTO) 0.5 X10'3 (0-0.9); NEUTROPHILS # (AUTO) 4.5 X10'3 (1.8-7.7); NEUTROPHILS % (AUTO) 74.6 % (42-75); PLATELET COUNT 127 X10'3 (140-440); RED BLOOD COUNT 4.92 X10'6 (4.70-6.10)
[2022-12-26 10:00] LABS: ALBUMIN 3.9 G/DL (3.4-5.0); ANION GAP 6 (8-16); BLOOD UREA NITROGEN 18 MG/DL (7-18); BUN/CREATININE RATIO 15.5 (10.0-20.0); CALCIUM 8.8 MG/DL (8.5-10.1); CHLORIDE 105 MMOL/L (99-107); CREATININE 1.16 MG/DL (0.60-1.10); GLUCOSE 127 MG/DL (70-104); SODIUM 140 MMOL/L (135-145); eGFR 61 ML/MIN
[2022-12-27] VITALS (8 sets, daily range): BP systolic 147–187; BP diastolic 79–94
[~2022-12-27] VITALS: Ht 172.7 cm; Wt 110.5 kg
[~2022-12-27 06:50] MED LIST changes: -DOCUMENT DATE & TIME OF BETA-BLOCKER PO ONE; +PSYL1040 PO; -PSYL660P17 PO; -aspirin 325mg tablet PO ONE; -nitroPRUSSIDE (NIPRIDE) (200MCG/ML) 100ML Drip IV SCH; -ondansetron/PF 4mg/2ml inj IV PRN; -protamine sulfate 10mg/ml inj. ONE
[2022-12-27] MEDS ORDERED: diphenhydrAMINE 25mg capsule PO ONE (07:25)
[2022-12-27] MEDS ORDERED: MIDAZolam 1mg/ml 10ml vial IV ONE (07:25)
[2022-12-27] MEDS ORDERED: morphine 10mg/ml inj. IV ONE (07:25)
[2022-12-27] MEDS ORDERED: amiodarone 150mg/dext, iso-os 100 ML IV ONE (07:25)
[2022-12-27] MEDS ORDERED: atropine 0.1mg/ml 10ml syringe IV ONE (07:25)
[2022-12-27] MEDS ORDERED: LORazepam 0.5 MG tablet PO ONE (07:25)
[2022-12-27] MEDS ORDERED: normal saline 1000ml 1,000 ML IV SCH (07:25)
[2022-12-27] MEDS ORDERED: METO50TA17 PO (07:30)
[2022-12-27] MEDS ORDERED: enoxaparin 100mg/ml syringe SUBCUT ONE (07:30)
[2022-12-27] MEDS ORDERED: FINA5TAB11 PO (08:20)
[2022-12-27] MEDS ORDERED: AMLOD/BENAZP PO (08:20)
[2022-12-27] MEDS ORDERED: APIX5TAB3 PO (08:20)
[2022-12-27] MEDS ORDERED: ASPI-101 PO (08:21)
[2022-12-27] MEDS ORDERED: [UNRECOGNIZED DRUG - OTHER] PO (08:24)
[2022-12-27] MEDS ORDERED: TURM500C4 PO (08:24)
[2022-12-27] MEDS ORDERED: BETA1TAB19 PO (08:24)
[2022-12-27] MEDS ORDERED: UBID100C16 PO (08:24)
== END 2022-12-27 09:55 | disposition home or self-care (01) ==
LOC: SSTAY O 06:50
PROVIDERS: ATTEND Internal Medicine Cardiovascular Disease
DX: I48.0 Paroxysmal atrial fibrillation (principal); I11.0 Hypertensive heart disease with heart failure; I50.22 Chronic systolic (congestive) heart failure; E78.5 Hyperlipidemia, unspecified; I35.0 Nonrheumatic aortic (valve) stenosis; G47.30 Sleep apnea, unspecified; I25.10 Atherosclerotic heart disease of native coronary artery without angina pectoris; E66.9 Obesity, unspecified; Z68.37 Body mass index [BMI] 37.0-37.9, adult; M19.90 Unspecified osteoarthritis, unspecified site; Z98.890 Other specified postprocedural states; Z95.0 Presence of cardiac pacemaker; Z79.899 Other long term (current) drug therapy; Z79.01 Long term (current) use of anticoagulants; Z95.4 Presence of other heart-valve replacement; Z82.3 Family history of stroke
CPT/HCPCS: 36415; 80048; 83880; 85025; 85610; 92960; 93005; A6258; J1650; J2250; J2274; J7030

== ENCOUNTER 2023-03-14 13:30 | Emergency (ER) | payer MEDICARE, BC ==
[~2023-03-14] VITALS: Ht 172.7 cm; Wt 102.8 kg
[~2023-03-14 13:30] MED LIST changes: +AMLOD/BENAZP PO; +APIX5TAB3 PO; +ASPI-101 PO; -ASPI-611 PO; +BETA1TAB19 PO; +FINA5TAB11 PO; -FURO-149 PO; -LOP25T PO; +METO50TA17 PO; -OMEG-182 PO; -POTA-207 PO; -PSYL1040 PO; -ROSU20TA31 PO; +ROSU20TA73 PO; +TURM500C4 PO; +UBID100C16 PO; -[UNRECOGNIZED DRUG - OTHER]; +[UNRECOGNIZED DRUG - OTHER] PO
[2023-03-14 13:51] VITALS: TEMP 97.6
[2023-03-14 14:11] LABS: BASOPHILS % (AUTO) 0.6 % (0-1); EOSINOPHILS # (AUTO) 0.3 X10'3 (0-0.9); EOSINOPHILS % (AUTO) 3.9 % (0-6); HEMATOCRIT 46.8 % (42.0-52.0); HEMOGLOBIN 15.4 g/dl (14.0-17.9); LYMPHOCYTES # (AUTO) 1.1 X10'3 (1.1-4.8); LYMPHOCYTES % (AUTO) 16.3 % (21-51); MEAN CORPUSCULAR HGB CONC 32.9 g/dL (33.0-36.5); MEAN CORPUSCULAR VOLUME 94.1 FL (78-98); MONOCYTES # (AUTO) 0.7 X10'3 (0-0.9); MONOCYTES % (AUTO) 9.9 % (2-12); NEUTROPHILS # (AUTO) 4.7 X10'3 (1.8-7.7); NEUTROPHILS % (AUTO) 69.3 % (42-75); PLATELET COUNT 110 X10'3 (140-440); RED BLOOD COUNT 4.97 X10'6 (4.70-6.10); RED CELL DISTRIBUTION WIDTH 16.3 % (11.5-14.5); WHITE BLOOD COUNT 6.7 X10'3 (4.5-11.0)
[2023-03-14 14:29] LABS: ALANINE AMINOTRANSFERASE 28 U/L (12-78); ALBUMIN 3.3 G/DL (3.4-5.0); ALBUMIN/GLOBULIN RATIO 0.9 (1.1-1.5); ALKALINE PHOSPHATASE 48 IU/L (46-116); ANION GAP 8 (8-16); ASPARTATE AMINO TRANSFERASE 20 U/L (10-37); BILIRUBIN,TOTAL 0.7 MG/DL (0.1-1.0); BLOOD UREA NITROGEN 20 MG/DL (7-18); BUN/CREATININE RATIO 18.3 (10.0-20.0); CALCIUM 8.7 MG/DL (8.5-10.1); CHLORIDE 104 MMOL/L (99-107); CREATININE 1.09 MG/DL (0.60-1.10); GLUCOSE 130 MG/DL (70-104); POTASSIUM 4.2 MMOL/L (3.5-5.1); SODIUM 137 MMOL/L (135-145); TOTAL CARBON DIOXIDE 24.9 MMOL/L (24-32); TOTAL PROTEIN 7.1 G/DL (6.4-8.2); eGFR 65 ML/MIN
[2023-03-14] MEDS ORDERED: lisinopril 10 MG tablet PO ONE (20:10)
[2023-03-14 22:30] VITALS: BP 172/83; PULSE 77; RESP 18; O2SAT 93
== END 2023-03-14 22:55 | disposition home or self-care (01) ==
LOC: ER 13:31
DX: R00.1 Bradycardia, unspecified (principal); I10 Essential (primary) hypertension; R53.83 Other fatigue; E78.00 Pure hypercholesterolemia, unspecified; Z88.8 Allergy status to other drugs, medicaments and biological substances; Z79.899 Other long term (current) drug therapy; Z79.82 Long term (current) use of aspirin
CPT/HCPCS: 36415; 71045; 80053; 83880; 84484; 85025; 93005; 99285

== ENCOUNTER 2023-05-10 09:06 | Day surgery (SDC) | payer MEDICARE, BC ==
[2023-05-09 12:43] LABS: BASOPHILS % (AUTO) 0.6 % (0-1); EOSINOPHILS # (AUTO) 0.3 X10'3 (0-0.9); EOSINOPHILS % (AUTO) 3.4 % (0-6); HEMATOCRIT 47.6 % (42.0-52.0); LYMPHOCYTES # (AUTO) 0.9 X10'3 (1.1-4.8); LYMPHOCYTES % (AUTO) 11.3 % (21-51); MEAN CORPUSCULAR HEMOGLOBIN 31.8 PG (27.0-31.0); MEAN CORPUSCULAR HGB CONC 33.5 g/dL (33.0-36.5); MEAN CORPUSCULAR VOLUME 94.8 FL (78-98); MEAN PLATELET VOLUME 8.5 FL (7.4-10.4); MONOCYTES # (AUTO) 0.6 X10'3 (0-0.9); MONOCYTES % (AUTO) 7.9 % (2-12); NEUTROPHILS # (AUTO) 6.1 X10'3 (1.8-7.7); NEUTROPHILS % (AUTO) 76.8 % (42-75); PLATELET COUNT 117 X10'3 (140-440); RED BLOOD COUNT 5.02 X10'6 (4.70-6.10); RED CELL DISTRIBUTION WIDTH 16.1 % (11.5-14.5); WHITE BLOOD COUNT 7.9 X10'3 (4.5-11.0)
[2023-05-09 12:57] LABS: ALBUMIN 3.5 G/DL (3.4-5.0); ANION GAP 2 (8-16); BLOOD UREA NITROGEN 24 MG/DL (7-18); CALCIUM 9.1 MG/DL (8.5-10.1); CHLORIDE 104 MMOL/L (99-107); CREATININE 1.09 MG/DL (0.60-1.10); GLUCOSE 100 MG/DL (70-104); POTASSIUM 4.1 MMOL/L (3.5-5.1); SODIUM 137 MMOL/L (135-145); TOTAL CARBON DIOXIDE 30.7 MMOL/L (24-32); eGFR 65 ML/MIN
[2023-05-09 13:00] LABS: APTT 27 SECONDS (22-32); INR 1.1 INR; PROTHROMBIN TIME 11.5 SECONDS (9.0-12.0)
[2023-05-10] VITALS (11 sets, daily range): BP systolic 104–163; BP diastolic 67–96; PULSE 59–68; RESP 16; TEMP 97.5; O2SAT 90–93
[~2023-05-10] VITALS: Ht 172.7 cm; Wt 110.3 kg
[2023-05-10] MEDS ORDERED: diphenhydrAMINE 25mg capsule PO PRN (09:30)
[2023-05-10] MEDS ORDERED: normal saline 1,000 ML IV SCH (09:30)
[2023-05-10] MEDS ORDERED: LORazepam 0.5 MG tablet PO PRN (09:30)
[2023-05-10] MEDS ORDERED: AMLO1CAP6 PO (09:42)
[2023-05-10] MEDS ORDERED: LOSA100T58 PO (09:42)
[2023-05-10] MEDS ORDERED: PSYL575P22 PO (09:42)
[2023-05-10] MEDS ORDERED: LISI40TA13 PO (09:42)
[2023-05-10] MEDS ORDERED: AMIO100T4 PO (09:42)
[2023-05-10] MEDS ORDERED: ASPI81TA52 PO (09:42)
[2023-05-10] MEDS ORDERED: midazolam 1 mg/ML 2ml injection ONE (10:50)
[2023-05-10] MEDS ORDERED: verapamil 2.5 mg/ml inj IV ONE (10:50)
[2023-05-10] MEDS ORDERED: fentaNYL/PF 50MCG/1 ML 2ML syringe ONE (10:50)
[2023-05-10] MEDS ORDERED: LIDOcaine 1% (10mg/ml) 2ml vial ONE ×2 (10:50→10:55)
[2023-05-10] MEDS ORDERED: iohexol 350MG/ML 100ml bottle IV ONE (10:51)
[2023-05-10] MEDS ORDERED: iohexol 350 MG/ML 50ML vial IV ONE ×2 (10:51→11:42)
[2023-05-10] MEDS ORDERED: heparin 1,000unit/ml 10ml vial 10 ML ONE (10:51)
[2023-05-10] MEDS ORDERED: nitroGLYCERIN 500mcg/5mL D5W 5 ML IV ONE (10:52)
== END 2023-05-10 17:25 | disposition home or self-care (01) ==
LOC: SSTAY O 09:06
PROVIDERS: ATTEND Internal Medicine Cardiovascular Disease
DX: I25.10 Atherosclerotic heart disease of native coronary artery without angina pectoris (principal); I11.0 Hypertensive heart disease with heart failure; I50.22 Chronic systolic (congestive) heart failure; E78.5 Hyperlipidemia, unspecified; I48.0 Paroxysmal atrial fibrillation; I35.0 Nonrheumatic aortic (valve) stenosis; I44.1 Atrioventricular block, second degree; E66.9 Obesity, unspecified; Z68.37 Body mass index [BMI] 37.0-37.9, adult; M19.90 Unspecified osteoarthritis, unspecified site; Z95.4 Presence of other heart-valve replacement; Z95.0 Presence of cardiac pacemaker; Z95.5 Presence of coronary angioplasty implant and graft; Z79.899 Other long term (current) drug therapy; Z79.82 Long term (current) use of aspirin; Z98.890 Other specified postprocedural states; Z82.3 Family history of stroke
CPT/HCPCS: 36415; 76937; 80048; 85025; 85610; 85730; 93005; 93458; 99152; 99153; J1644; J2250; J3010; J3490; J7030; Q0163; Q9967; A6258; A6402; C1725; C1769; C1894

== ENCOUNTER 2024-02-22 09:24 | Outpatient (CLI) | payer MEDICARE, BC ==
[2024-02-21 14:30] LABS: ALBUMIN 3.5 G/DL (3.4-5.0); ANION GAP 9 (8-16); BLOOD UREA NITROGEN 33 MG/DL (7-18); BUN/CREATININE RATIO 27.5 (10.0-20.0); CALCIUM 8.7 MG/DL (8.5-10.1); CHLORIDE 104 MMOL/L (99-107); GLUCOSE 107 MG/DL (70-104); POTASSIUM 4.2 MMOL/L (3.5-5.1); SODIUM 140 MMOL/L (135-145); TOTAL CARBON DIOXIDE 26.6 MMOL/L (24-32); eGFR 58 ML/MIN
[~2024-02-22 09:24] MED LIST changes: +AMIO100T4 PO; +AMLO1CAP6 PO; -AMLOD/BENAZP PO; -APIX5TAB3 PO; -ASPI-101 PO; +ASPI81TA52 PO; -BETA1TAB19 PO; +LISI40TA13 PO; +LOSA100T58 PO; +PSYL575P22 PO; -[UNRECOGNIZED DRUG - OTHER] PO
[2024-02-22] MEDS ORDERED: iohexol 350MG/ML 100ml bottle IV ONE (09:35)
== END 2024-02-22 23:59 | disposition home or self-care (01) ==
LOC: RAD 09:24
PROVIDERS: ATTEND Surgery
DX: I65.21 Occlusion and stenosis of right carotid artery (principal)
CPT/HCPCS: 36415; 70498; 80048; Q9967

== ENCOUNTER 2025-01-01 05:53 | Day surgery (SDC) | payer MEDICARE, BC ==
[2024-12-31 12:04] LABS: BASOPHILS # (AUTO) 0.1 X10'3 (0-0.2); BASOPHILS % (AUTO) 0.8 % (0-1); EOSINOPHILS # (AUTO) 0.3 X10'3 (0-0.9); HEMATOCRIT 47.4 % (42.0-52.0); HEMOGLOBIN 15.8 g/dl (14.0-17.9); LYMPHOCYTES # (AUTO) 1.2 X10'3 (1.1-4.8); LYMPHOCYTES % (AUTO) 16.3 % (21-51); MEAN CORPUSCULAR HEMOGLOBIN 31.3 PG (27.0-31.0); MEAN CORPUSCULAR HGB CONC 33.3 g/dL (33.0-36.5); MEAN CORPUSCULAR VOLUME 93.9 FL (78-98); MEAN PLATELET VOLUME 8.1 FL (7.4-10.4); MONOCYTES # (AUTO) 0.5 X10'3 (0-0.9); MONOCYTES % (AUTO) 7.5 % (2-12); NEUTROPHILS # (AUTO) 5.1 X10'3 (1.8-7.7); NEUTROPHILS % (AUTO) 71.4 % (42-75); PLATELET COUNT 154 X10'3 (140-440); RED BLOOD COUNT 5.05 X10'6 (4.70-6.10); RED CELL DISTRIBUTION WIDTH 15.4 % (11.5-14.5); WHITE BLOOD COUNT 7.2 X10'3 (4.5-11.0)
[2024-12-31 12:25] LABS: APTT 29 SECONDS (22-32); INR 1.1 INR; PROTHROMBIN TIME 11.4 SECONDS (9.0-12.0)
[2024-12-31 12:26] LABS: ALBUMIN 3.7 G/DL (3.4-5.0); ANION GAP 6 (8-16); BLOOD UREA NITROGEN 22 MG/DL (7-18); CALCIUM 8.8 MG/DL (8.5-10.1); CHLORIDE 105 MMOL/L (99-107); CREATININE 1.05 MG/DL (0.60-1.10); GLUCOSE 107 MG/DL (70-104); POTASSIUM 4.3 MMOL/L (3.5-5.1); SODIUM 141 MMOL/L (135-145); TOTAL CARBON DIOXIDE 30.2 MMOL/L (24-32); eGFR 68 ML/MIN
[~2025-01-01] VITALS: Ht 172.7 cm; Wt 110.2 kg
[2025-01-01] VITALS (15 sets, daily range): BP systolic 113–177; BP diastolic 47–66; PULSE 60; RESP 10–17; TEMP 97.6; O2SAT 92–96
[~2025-01-01 05:53] MED LIST changes: -FLO0.4C PO; -ROSU20TA73 PO; +ROSU20TA98 PO; +TAMS-55 PO
--- NOTE | 2025-01-01 06:29 | ELECTROCARDIOGRAPH REPORT ---
[facility] Test Date: 2025-01-01 Test Time: 06:25:50 Pat Name: VICTOR MANUEL DYE Department: [facility] Patient ID: [id number] Room: Gender: M Associate Broker: NAOMI : 1940 Requested By: SPENCER VIRK Order Number: [id number] Reading MD: Dr. JULIANN Virk Measurements Intervals [place] Rate: 60 P: 117 W[place]: 205 QRS: -59 QRSD: 196 T: 109 QT: 520 QTc: 520 Interpretive Statements Atrial-ventricular dual-paced rhythm No further analysis attempted due to paced rhythm Baseline wander in lead(s) V1,V2 Electronically Signed On 01-01-2025 17:19:[address] JULIANN Virk Please click the below link to view image of tracing.
[2025-01-01] MEDS ORDERED: AMI200T PO (06:39)
[2025-01-01] MEDS ORDERED: AMLO10TA13 PO (06:40)
[2025-01-01] MEDS ORDERED: OLME40TA18 PO (06:41)
[2025-01-01] MEDS ORDERED: TRIA1CAP88 PO (06:42)
[2025-01-01] MEDS ORDERED: FURO20TA4 PO (06:42)
[2025-01-01] MEDS ORDERED: RED55CAP (06:46)
[2025-01-01] MEDS ORDERED: FLUO30CR36 TOP (06:46)
[2025-01-01] MEDS ORDERED: KETO120S5 TP (06:47)
[2025-01-01] MEDS ORDERED: RED500CA (06:48)
[2025-01-01] MEDS ORDERED: OCUVITE PO (06:48)
[2025-01-01] MEDS ORDERED: MAGN500C4 PO (06:49)
[2025-01-01] MEDS ORDERED: MILK175C5 (06:50)
[2025-01-01] MEDS ORDERED: CARV6.253 PO (06:51)
[2025-01-01] MEDS ORDERED: EZET10TA48 PO (06:51)
[2025-01-01] MEDS ORDERED: verapamil 2.5 mg/ml inj IV ONE (07:28)
[2025-01-01] MEDS ORDERED: LIDOcaine 1% (10mg/ml) 2ml vial ONE (07:28)
[2025-01-01] MEDS ORDERED: heparin 1,000unit/ml 10ml vial 10 ML ONE (07:29)
[2025-01-01] MEDS ORDERED: iohexol 350MG/ML 100ml bottle IV ONE (07:29)
[2025-01-01] MEDS ORDERED: midazolam 1 mg/ML 2ml injection ONE (07:29)
[2025-01-01] MEDS ORDERED: fentaNYL/PF 50MCG/1 ML 2ML syringe ONE (07:29)
[2025-01-01] MEDS ORDERED: iohexol 350 MG/ML 50ML vial IV ONE ×2 (07:29→08:40)
[2025-01-01] MEDS: normal saline 1,000 ML IV SCH (07:42)
[2025-01-01] MEDS: LORazepam 0.5 MG tablet PO PRN (07:42)
[2025-01-01] MEDS: diphenhydrAMINE 25mg capsule PO PRN (07:42)
[2025-01-01] MEDS ORDERED: nitroGLYCERIN 500mcg/5mL D5W 5 ML IV ONE (08:03)
[2025-01-01] MEDS ORDERED: LIDOcaine 1% 30ml preserv. free vial ONE (08:56)
[2025-01-01] MEDS ORDERED: hydrALAZINE 20mg/ml inj. ONE ×2 (09:23→09:38)
[2025-01-01] MEDS ORDERED: HYDROcodone/acetaminophen 5mg/325mg tablet PO PRN (10:30)
[2025-01-01] MEDS ORDERED: hydrALAZINE 20mg/ml inj. IV PRN (10:30)
[2025-01-01] MEDS ORDERED: HYDROcodone/acetaminophen 10/325mg tab PO PRN (10:30)
[2025-01-01] MEDS ORDERED: normal saline 1000ml 1,000 ML IV ONE (10:35)
--- NOTE | 2025-01-01 11:11 | CARDIOLOGY REPORT ---
DATE OF SERVICE: 01/01/2025 DICTATING PHYSICIAN: JULIANN Rice MD CARDIAC CATHETERIZATION WEIGHT: 110 kg. HEIGHT: 172 cm. BODY SURFACE AREA: 2.1 m2. 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 The patient's history of CAD dates back to 10/24/2015 and he had PTCA stenting of the RCA with 3/38 and 3/15 Alpine stent in overlapping fashion. On 10/15/2015, the patient underwent PTCA stenting of the proximal OM with 2.5 x 20 Promus stent. The patient had a TAVR valve implanted on 01/20/2022. Lately, the patient is having exertional fatigue, shortness of breath, which has been progressively increasing. The patient had distal inferior positive stress test with ischemia in the distal inferior location on 03/05/2024, which was managed medically, but in view of his progressively increasing tiredness and fatigue, the patient prefers to proceed with definitive coronary angiography. Risks, benefits, and alternative options discussed, informed consent obtained. His echocardiogram from 08/28/2024 showed that the EF is normal with normally functioning S3 Ultra TAVR valve. PROCEDURE TECHNIQUE: The patient underwent right heart catheterization from right antecubital approach, 6-Russian sheath. Post-procedure access site hemostasis secured with compression. The patient initially underwent right radial access with coronary angiography. Subsequently, he had severe radial artery spasm, hence switched to right femoral artery access, 6-Russian radial femoral artery sheath. Post-procedure access site hemostasis secured with right femoral Perclose. The patient tolerated the procedure well. COMPLICATIONS: None. PROCEDURES DONE: * Ultrasound-guided right radial artery and right femoral artery visualization and access. * Right heart catheterization. * Left heart catheterization. * LVG. * Coronary cineangiography. * Conscious sedation time of 60 minutes and right femoral arteriography and percutaneous closure with femoral arteriotomy site. FINDINGS: HEMODYNAMICS: Aortic systolic 174, diastolic 63, mean 104 mmHg, LVEDP of 20 mmHg. There was a mean gradient of 16.9 mmHg across the aortic valve with aortic valve area of 1.9 cm2. Aortic oxygen saturation 96%, pulmonary artery oxygen saturation of 74%. Right atrial mean 17 mmHg, RV 51/22 mmHg, PA 57/22 mmHg. Pulmonary capillary wedge of 23 mmHg. Cardiac output by thermodilution method is about 6.28 L/min. Cardiac index is 2.84 L/min/m2. LEFT VENTRICULOGRAM: Overall, left ventricular systolic function now with LVEF 65%. CORONARY CINEANGIOGRAPHY: Left main coronary artery was difficult to engage from right radial approach, JL3.5, JL4, AL1 could not engage. Subsequently, we had to go from the right femoral approach. JL4 easily engaged in the left main coronary artery, large caliber vessel arising from the left aortic sinus with mild luminal irregularities. LAD is a medium caliber vessel arising at the bifurcation of the left main coronary and courses through the anterior interventricular groove and ends by wrapping around the apex. The LAD at the very distal and near the apex is 100% occluded with collateralization. It is unchanged from before. Proximally, LAD has 30% and midportion 40% narrowing. Diagonal 1 is 2.25 mm caliber with mild luminal irregularities. Diagonal 2 is 2 mm caliber with a long 30% narrowing. Diagonal 3 is 1.5 mm caliber with mild luminal irregularities. Circumflex artery is a medium caliber arising at the bifurcation of the left main coronary artery and courses predominantly as principal obtuse marginal branch and divides in 2 divisions. Stent in the proximal OM is widely patent after the circumflex artery rapidly tapers off in the left AV groove. RIGHT CORONARY ARTERY: Right coronary artery is a medium caliber arising from the right aortic stenosis and courses through the right AV groove and ends at the posterior crux by dividing into PDA and posterolateral branch. Regularized bifurcation to PDA in the mid portion of the RCA. The stent extending from the main RCA to the posterolateral branch is widely patent and PDA has areas of about 50-60% narrowing. Remainder of the RCA has mild luminal irregularities. IMPRESSION: An 84-year-old male with LV ejection fraction of 65%. LVEDP of 20 mmHg. There is a mean gradient of 16.9 mmHg across the prosthetic aortic valve with a valve area of 1.9 cm2. Pulmonary capillary wedge pressure of 23 mmHg. PA pressure of 57/22 mmHg. Left main normal. Proximal LAD 30%, mid LAD 40% narrowing, very distal LAD near the apex is 100% occluded with collateralization. OM stent is widely patent. RCA stent is widely patent. PDA with 50-60% narrowing. RECOMMENDATIONS: Recommend continued aggressive coronary risk factor modification, namely low-fat, low-cholesterol diet, maintaining ideal body weight, keeping LDL less than 70 mg, regular exercise program. I also recommend EECP. BV MD Dwayne TID: [id number] RECEIPT: [id number] /AMA cc: Ward Deras MD [facility]
[2025-01-01 12:16] LABS: ISTAT Hct ART 44 %PCV (42-52); ISTAT O2 SATURATION ARTERIAL 96 % (95-98); ISTAT SOURCE ART
[2025-01-01 12:21] LABS: ISTAT Hct MIX 44 %PCV (42-52); ISTAT O2 SATURATION MIX VENOUS 74 % (60-80); ISTAT SOURCE VEN
== END 2025-01-01 17:00 | disposition home or self-care (01) ==
LOC: SSTAY O 05:53
PROVIDERS: ATTEND Internal Medicine Cardiovascular Disease
DX: R94.39 Abnormal result of other cardiovascular function study (principal); I25.10 Atherosclerotic heart disease of native coronary artery without angina pectoris; I48.0 Paroxysmal atrial fibrillation; G47.30 Sleep apnea, unspecified; I50.22 Chronic systolic (congestive) heart failure; I35.0 Nonrheumatic aortic (valve) stenosis; E78.5 Hyperlipidemia, unspecified; I65.23 Occlusion and stenosis of bilateral carotid arteries; I11.0 Hypertensive heart disease with heart failure; Z95.5 Presence of coronary angioplasty implant and graft; Z79.01 Long term (current) use of anticoagulants; Z98.890 Other specified postprocedural states; Z79.899 Other long term (current) drug therapy
CPT/HCPCS: 36415; 80048; 82803; 85014; 85025; 85610; 85730; 93005; 93460; 99152; 99153; A6258; A6402; C1725; C1751; C1760; C1894; J0360; J1644; J2003; J2250; J3010; J3490; J7030; Q0163; Q9967; Z7610; A6449